=== PATIENT | female | born 1940 | race Caucasian/White ===

== ENCOUNTER → 2016-12-31 | Outpatient (CLI) | payer MEDICARE, OTHER ==
[~2016-12-31] MED LIST: AMOXICILLIN 8751 TAB PO; ASPIRIN 81M81 MG/TA2 PO; ASPIRIN E.C. 8181 MG PO; ATROVENT INHALE14 GM IH; BACTRIM DS 8001 TAB PO; BONE MED; BROVANA15 MCG/2 M IH; CARDIZEM 60MG T60 MG PO; CARDIZEM120 MG PO; CEPHALEXIN500 M1 PO; CIPRO 500MG TA500 MG PO; COREG12.5 MG PO; DOXYCYCLINE 10100 MG PO; DRISTAN 12-HOUR15 ML NS; ELIQUIS 5MG PO; FLONASE NASAL S16 GM NS; FOSAMAX 70MG TA70 MG PO; GENTEAL MILD 1515 M1 OP; LANOXIN 0.120.125 MG PO; LASIX 20MG TABL20 MG PO; LASIX 40MG TABL40 MG PO; LEVAQUIN 750MG750 M1 PO; MACROBID 1100 MG/CAP; MACRODANTIN50 MG/CA1; METRONIDAZOLE500 MG PO; MULTAQ400 MG PO; NAPROSYN500 MG PO; NICODERM C21 MG/PATC TD; NITROSTAT0.4 MG/TAB SL; NORCO 325 MG-51 TAB PO; NORCO 325 MG-7.1 TAB PO; NORVASC 5MG5 MG/TAB PO; PHENERGAN 25 TA25 MG PO; PLAVIX 75MG TAB75 MG PO; PREDNISONE10 MG PO; PREDNISONE20 MG PO; PRILOSEC 20MG20 MG PO; PRINIVIL2.5 MG PO; PRINIVIL5 MG PO; PROAIR HFA0.09 MG/AC; PROAIR HFA0.09 MG/AC IH; RT ADVAIR 228 DISKUS IH; RT SPIRIVA18 MCG IH; TEARS NATURALE15 M1 OP; TIKOSYN0.125 MG PO; TOPROL XL 25MG25 MG PO; ULTRAM 50MG TAB50 MG PO; VENTOLIN0.09 MG IH; XOPENEX HF0.045 MG/A IH; ZOCOR 20MG20 MG PO; [UNRECOGNIZED DRUG - REMARK]; [UNRECOGNIZED DRUG - REMARK]; cholesterol med; htn med
== END ==
LOC: MC.RAD 11:00
DX: Z12.31 Encounter for screening mammogram for malignant neoplasm of breast (principal)

== ENCOUNTER → 2018-01-31 | Outpatient (CLI) | payer MEDICARE, OTHER ==
[~2018-01-31] MED LIST changes: +PRINIVIL20 MG PO; +THEO-24400 MG PO; +ZITHROMAX 250M250 MG PO
== END ==
LOC: COL.CARD 08:00
DX: I10 Essential (primary) hypertension (principal)

== ENCOUNTER → 2018-02-24 | Outpatient (CLI) | payer MEDICARE, OTHER | LOC: MC.RAD 07:40 | DX: Z12.31 Encounter for screening mammogram for malignant neoplasm of breast (principal); Z95.0 Presence of cardiac pacemaker ==

== ENCOUNTER 2018-06-28 15:47 | Observation (INO) | payer MEDICARE ==
[~2018-06-28] VITALS: Ht 154.9 cm; Wt 46.1 kg
[2018-06-28 16:39] LABS: BASO % 0.5 % (0.0-2.0); EOS # 0.2 (0.0-0.7); EOS % 2.5 % (0-4.0); GRAN # 4.3 (1.4-6.5); GRAN % 54.9 % (42.2-75.2); HEMOGLOBIN 11.9 g/dl (12.5-16.0); LYMPH # 2.6 (1.2-3.4); LYMPH % 33.3 % (20.0-51.0); MEAN CELL VOLUME 91 fl (80.0-100.0); MEAN CORPUSCULAR HEMOGLOBIN 32 pg (27.0-31.0); MEAN CORPUSCULAR HGB CONC 35 g/dl (33.0-37.0); MEAN PLATELET VOLUME 11.9 fl (7.4-10.4); MONO # 0.7 (0.1-0.6); MONO % 8.5 % (1.7-9.3); PLATELET COUNT 151 K/mm3 (130-400); RED BLOOD COUNT 3.78 M/mm3 (4.10-5.30); REDCELL DISTRIBUTION WIDTH-CV 11.9 % (11.5-14.5)
[2018-06-28 16:42] LABS: HEMATOCRIT 34.5 % (37.0-47.0)
[2018-06-28 16:51] LABS: ALBUMIN 4.1 gm/dL (3.5-5.0); BILIRUBIN,TOTAL 0.3 mg/dL (0.0-1.0); C-REACTIVE PROTEIN 0.7 mg/dL (0.0-0.9); CALCIUM 9.5 mg/dL (8.4-10.2); CREATININE, serum 1.55 mg/dL (0.52-1.25)
[2018-06-28 17:00] LABS: TROPONIN-I 0.033 ng/mL (0.000-0.034)
[2018-06-28] MEDS ORDERED: HYGROTON 2525 MG/TAB (19:32)
[2018-06-28] MEDS ORDERED: BYSTOLIC10 MG PO (19:36)
[2018-06-28] MEDS ORDERED: UNIPHYL 400MG400 MG PO (20:33)
[2018-06-28 22:24] VITALS: BP 126/91; PULSE 68; TEMP 97.9
[2018-06-29 01:15] VITALS: BP 130/58; PULSE 61; TEMP 98.2
[2018-06-29 04:59] VITALS: BP 131/67; PULSE 64; TEMP 98.1
--- NOTE | 2018-06-29 06:01 | NUR ---
PT APPEARED TO HAVE SLEPT WELL THIS HS. NO C/O PAIN. NOT MUCH URINE OUTPUT NOTED THIS HS. PENDING UA NEEDED, HAT IN TOILET. TOOK PT IN SPUTUM COLLECTION CONTIANER AND INSTRUCTED ON HOW TO USE, IF ABLE TO SPIT UP MUCUS. STATED SHE HASNT BEEN ABLE TO COUGH UP ANYTHING OF YET. RESPATORY VIRUS PANEL SWAB OBTIANED AND SENT TO LAB, PT PUT ON DROPLET PRECATIONS UNTIL RESULTS RETURN. PT HAD A LOWER O2 SAT OF 91 THIS EARLY AM, THROUGHOUT NOC PT REMAINED IN THE UPPER 90'S PRIOR.
[2018-06-29 06:49] LABS: COLLECTION METHOD CLEAN CATCH
[2018-06-29 06:55] LABS: BASO % 0.2 % (0.0-2.0); GRAN # 4.7 (1.4-6.5); GRAN % 78.2 % (42.2-75.2); HEMOGLOBIN 10.5 g/dl (12.5-16.0); LYMPH # 1.1 (1.2-3.4); LYMPH % 18.4 % (20.0-51.0); MEAN CELL VOLUME 90 fl (80.0-100.0); MEAN CORPUSCULAR HEMOGLOBIN 31 pg (27.0-31.0); MEAN CORPUSCULAR HGB CONC 35 g/dl (33.0-37.0); MEAN PLATELET VOLUME 12.2 fl (7.4-10.4); MONO # 0.2 (0.1-0.6); MONO % 2.5 % (1.7-9.3); PLATELET COUNT 147 K/mm3 (130-400); RED BLOOD COUNT 3.37 M/mm3 (4.10-5.30); REDCELL DISTRIBUTION WIDTH-CV 11.9 % (11.5-14.5)
[2018-06-29 06:57] LABS: HEMATOCRIT 30.3 % (37.0-47.0)
[2018-06-29 07:00] LABS: MUCOUS Present /lpf; PH 6 (5-8); SQUAMOUS EPITHELIAL 0-2 /hpf; URINE APPEARANCE Clear; URINE BACTERIA None Seen /hpf; URINE BILIRUBIN Negative (NEGATIVE); URINE BLOOD 1+ (NEGATIVE); URINE COLOR Yellow; URINE GLUCOSE Negative (NEGATIVE); URINE KETONE Negative (NEGATIVE); URINE LEUKOCYTE ESTERASE Negative (NEGATIVE); URINE NITRATE Negative (NEGATIVE); URINE PROTEIN(semi-quant) Negative (NEGATIVE); URINE RBC 0-2 /hpf; URINE UROBILINOGEN Negative (NEGATIVE)
[2018-06-29 07:05] LABS: CALCIUM 8.5 mg/dL (8.4-10.2); CREATININE, serum 1.37 mg/dL (0.52-1.25); POTASSIUM 3.9 mmol/L (3.4-5.0)
[2018-06-29 07:20] VITALS: BP 126/65; PULSE 85; TEMP 98.1
[2018-06-29 11:21] VITALS: BP 122/70; PULSE 73; TEMP 97.7
[2018-06-29] MEDS ORDERED: PREDNISONE10 MG PO (14:13)
--- NOTE | 2018-06-29 14:36 | NUR ---
SW attended clinical rounding and met with patient to discuss dicharge planning. Patient lives in [place] with her daughter who she reports is a TAKER OFF BRAKER MACHINE. She uses o2 at night and obtains it through [facility] [employer] [facility] but does not need it during the day. Patients PCP is Dr Herbert and she obtains her medications through [facility]. Patient feels she can go home safely and doesn't need any home health or other DME.
--- NOTE | 2018-06-29 15:15 | NUR ---
Reviewed all discharge medications and instructions with patient and daughter. Emphasized importance of labwork on Tuesday, holding diuretics until follow up. Reviewed weighing herself daily to check for weight gain, especially while holding diuretics. All questions answered in depth. Patient and daughter verbalize understanding. INT and tele removed. Pt walked out to car.
== END 2018-06-29 15:16 | disposition home or self-care (01) ==
LOC: COL.ER 15:47 → MEDICAL 18:54
PROVIDERS: Emergency Medicine; Nurse Practitioner
DX: J44.1 Chronic obstructive pulmonary disease with (acute) exacerbation (principal); I48.91 Unspecified atrial fibrillation; I10 Essential (primary) hypertension; E78.5 Hyperlipidemia, unspecified; I13.0 Hypertensive heart and chronic kidney disease with heart failure and stage 1 through stage 4 chronic kidney disease, or unspecified chronic kidney disease; I50.20 Unspecified systolic (congestive) heart failure; N17.9 Acute kidney failure, unspecified; I25.10 Atherosclerotic heart disease of native coronary artery without angina pectoris; Z90.710 Acquired absence of both cervix and uterus; Z88.8 Allergy status to other drugs, medicaments and biological substances; Z95.0 Presence of cardiac pacemaker; Z87.891 Personal history of nicotine dependence; Z82.49 Family history of ischemic heart disease and other diseases of the circulatory system; Z82.3 Family history of stroke; Z80.8 Family history of malignant neoplasm of other organs or systems
CPT/HCPCS: 99223-AI; G0378; J7030; J7512

== ENCOUNTER 2019-01-03 18:28 | Inpatient (IN) | payer MEDICARE ==
[~2019-01-03] VITALS: Ht 154.9 cm; Wt 41.5 kg
[~2019-01-03 18:28] MED LIST changes: +BYSTOLIC10 MG PO; +HYGROTON 2525 MG/TAB; +UNIPHYL 400MG400 MG PO
[2019-01-03 18:57] LABS: BASO # 0.1 (0.0-0.2); BASO % 0.4 % (0.0-2.0); EOS # 0.1 (0.0-0.7); EOS % 0.7 % (0-4.0); GRAN # 10.8 (1.4-6.5); GRAN % 78.6 % (42.2-75.2); HEMATOCRIT 41.2 % (37.0-47.0); HEMOGLOBIN 13.9 g/dl (12.5-16.0); LYMPH # 1.7 (1.2-3.4); LYMPH % 12.4 % (20.0-51.0); MEAN CELL VOLUME 92 fl (80.0-100.0); MEAN CORPUSCULAR HEMOGLOBIN 31 pg (27.0-31.0); MEAN CORPUSCULAR HGB CONC 34 g/dl (33.0-37.0); MEAN PLATELET VOLUME 12.6 fl (7.4-10.4); MONO % 7.5 % (1.7-9.3); PLATELET COUNT 142 K/mm3 (130-400); RED BLOOD COUNT 4.49 M/mm3 (4.10-5.30); REDCELL DISTRIBUTION WIDTH-CV 12.9 % (11.5-14.5)
[2019-01-03 19:11] LABS: ALBUMIN 4.2 gm/dL (3.5-5.0); BILIRUBIN,TOTAL 0.9 mg/dL (0.0-1.0); C-REACTIVE PROTEIN 1.6 mg/dL (0.0-0.9); CALCIUM 9.5 mg/dL (8.4-10.2); CREATININE, serum 0.95 (0.52-1.25); POTASSIUM 4.2 mmol/L (3.4-5.0)
[2019-01-03 19:33] LABS: COLLECTION METHOD CLEAN CATCH
[2019-01-03 19:42] LABS: MUCOUS Present /lpf; PH 5 (5-8); SQUAMOUS EPITHELIAL 0-2 /hpf; URINE APPEARANCE Hazy; URINE BACTERIA Rare /hpf; URINE BILIRUBIN Negative (NEGATIVE); URINE BLOOD 2+ (NEGATIVE); URINE COLOR Amber; URINE GLUCOSE Negative (NEGATIVE); URINE KETONE Trace (NEGATIVE); URINE LEUKOCYTE ESTERASE Negative (NEGATIVE); URINE NITRATE Negative (NEGATIVE); URINE PROTEIN(semi-quant) 2+ (NEGATIVE); URINE UROBILINOGEN Negative (NEGATIVE)
[2019-01-03] MEDS ORDERED: CEFTIN500 MG PO (21:25)
[2019-01-03] MEDS ORDERED: ALBUTEROL0.83 MG/ML IH (21:27)
[2019-01-03] MEDS ORDERED: VENTOLIN0.09 MG IH (21:28)
[2019-01-03] MEDS ORDERED: TIKOSYN0.125 MG PO (21:30)
[2019-01-03] MEDS ORDERED: PULMICORT0.25 MG/2 IH (21:30)
[2019-01-03] MEDS ORDERED: ELIQUIS 5MG PO (21:31)
[2019-01-03] MEDS ORDERED: ARMONAIR RESPI55 MCG IH (21:32)
[2019-01-03] MEDS ORDERED: FLONASEALLERGY NS (21:33)
[2019-01-03] MEDS ORDERED: LASIX 20MG TABL20 MG PO (21:34)
[2019-01-03] MEDS ORDERED: CLARITIN 1010 MG/TAB PO (21:35)
[2019-01-03] MEDS ORDERED: TOPROL XL200 MG PO (21:37)
[2019-01-03] MEDS ORDERED: PRIL40 PO (21:38)
[2019-01-03] MEDS ORDERED: SPIRIVA RE2.5 MCG/Ac IH (21:41)
[2019-01-03 22:04] VITALS: BP 199/85; PULSE 68; TEMP 97.9
[2019-01-03 23:31] VITALS: BP 165/99; PULSE 78; TEMP 98.5
[2019-01-04] MEDS ORDERED: THEO-24400 MG PO (00:42)
--- NOTE | 2019-01-04 03:32 | NUR ---
Patient to the floor at 2200 with daughter at bedside. Med rec completed, NS running to left AC. Patient denies pain at time of assessment. Noted to be hypertensive, gave lisinopril and Tikosyn per order and home meds. Rechecked blood pressure and noted to be 170/70. Libby updated and no new orders at this time. Patient resting in bed with call light in reach. Will continue to monitor.
[2019-01-04 03:46] VITALS: BP 170/70; PULSE 63; PULSE 66; TEMP 98.3
[2019-01-04 06:40] LABS: BASO % 0.3 % (0.0-2.0); EOS # 0.1 (0.0-0.7); EOS % 0.9 % (0-4.0); GRAN # 10.6 (1.4-6.5); GRAN % 78.4 % (42.2-75.2); HEMATOCRIT 37.3 % (37.0-47.0); HEMOGLOBIN 12.7 g/dl (12.5-16.0); LYMPH # 1.6 (1.2-3.4); LYMPH % 11.6 % (20.0-51.0); MEAN CELL VOLUME 91 fl (80.0-100.0); MEAN CORPUSCULAR HEMOGLOBIN 31 pg (27.0-31.0); MEAN CORPUSCULAR HGB CONC 34 g/dl (33.0-37.0); MEAN PLATELET VOLUME 12.4 fl (7.4-10.4); MONO # 1.2 (0.1-0.6); MONO % 8.5 % (1.7-9.3); PLATELET COUNT 129 K/mm3 (130-400); RED BLOOD COUNT 4.09 M/mm3 (4.10-5.30); REDCELL DISTRIBUTION WIDTH-CV 12.9 % (11.5-14.5)
[2019-01-04 06:49] LABS: CALCIUM 8.3 mg/dL (8.4-10.2); CREATININE, serum 0.76 (0.52-1.25); POTASSIUM 3.9 mmol/L (3.4-5.0)
--- NOTE | 2019-01-04 08:00 | NUR ---
PATIENT IS DROWSY AND RESTING IN BED WITH FAMILY PRESENT AT THE BEDSIDE. PATIENT AROUSES EASILY TO NAME. PATIENT IS A&OX4. VSS. BOWEL SOUNDS HYPERACTIVE ALL FOUR QUADRANTS. PATIENT HAS HAD SOME NAUSEA, BUT DENIES VOMITING. PATIENT STATES THAT SHE GETS SHORT OF BREATH WITH ACTIVITY. IV FLUIDS INFUSING TO LEFT AC IV VIA PUMP. CALL LIGHT WITHIN REACH. PATIENT DENIES ANY OTHER NEEDS AT THIS TIME.
[2019-01-04 08:32] VITALS: BP 158/69; PULSE 62; TEMP 98.2
[2019-01-04 11:58] VITALS: BP 121/90; PULSE 65; TEMP 98.2
--- NOTE | 2019-01-04 12:01 | NUR ---
PATIENT DENIES ANY COMPLAINTS OF ITCHING DURING OR AFTER FLAGYL INFUSION.
--- NOTE | 2019-01-04 15:56 | NUR ---
SW met with the patient to discuss discharge plan. The patient lives in [place] with her adopted daughter, Carmen. She reports independence with ADLs and does not have any DME. The patient's PCP is Dr. David Herbret and she receives her medications through the mail from [facility]. She reports no difficulties obtaining her meds. The patient does not have advanced directives in EMR, but she states that she does have them completed and at home. She states her daughter, Deloris Carnes, is her DPOA-HC. The patient plans to return home upon discharge. No additional needs at this time.
[2019-01-04 16:29] VITALS: BP 149/80; PULSE 63; TEMP 98.4
--- NOTE | 2019-01-04 19:01 | NUR ---
REPORT GIVEN TO MIRANDA CALABRESE.
[2019-01-04 19:15] VITALS: BP 138/62; PULSE 62; TEMP 98.4
--- NOTE | 2019-01-04 19:18 | NUR ---
Resting in bed. Assessment complete. Lungs clear. Heart sounds normal. Bowels active x4. Pulses strong throughout. No edema noted. IV left AC infusing without complications. Denies pain. Requesting 2100 medications to be given. Will provide to patient. Denies other needs. Call light in reach.
--- NOTE | 2019-01-04 23:44 | NUR ---
Resting in bed. Call light in reach.
[2019-01-05 01:12] VITALS: BP 158/72; PULSE 63; TEMP 98.2
--- NOTE | 2019-01-05 02:50 | NUR ---
Resting in bed. Denies needs. Call light in reach.
[2019-01-05 04:20] VITALS: BP 185/80; PULSE 61; TEMP 98.1
[2019-01-05 04:41] VITALS: BP 179/73
--- NOTE | 2019-01-05 04:46 | NUR ---
Patient blood pressure elevated. No PRN medication to provide for patient. Spoke with NHI Souza. Given morning dose of lisinopril 20mg now. Will retake blood pressure in 1 hour. Patient denies needs. Call light in reach.
[2019-01-05 05:38] VITALS: BP 177/67
--- NOTE | 2019-01-05 05:39 | NUR ---
Patient blood pressure elevated this AM. After morning dose of lisinopril blood pressure now 177/67. Informed Libby, NHI. Added order for PRN hydralazine. Will provide to patient.
--- NOTE | 2019-01-05 06:42 | NUR ---
Report given to MIRANDA Helm
[2019-01-05 07:03] VITALS: BP 158/66; PULSE 55; TEMP 97.4
[2019-01-05 07:34] LABS: BASO % 0.4 % (0.0-2.0); EOS # 0.2 (0.0-0.7); EOS % 3.5 % (0-4.0); GRAN # 3.9 (1.4-6.5); GRAN % 56.8 % (42.2-75.2); HEMOGLOBIN 11.2 g/dl (12.5-16.0); LYMPH # 1.8 (1.2-3.4); LYMPH % 25.8 % (20.0-51.0); MEAN CELL VOLUME 91 fl (80.0-100.0); MEAN CORPUSCULAR HEMOGLOBIN 31 pg (27.0-31.0); MEAN CORPUSCULAR HGB CONC 34 g/dl (33.0-37.0); MEAN PLATELET VOLUME 12.9 fl (7.4-10.4); MONO # 0.9 (0.1-0.6); MONO % 13.4 % (1.7-9.3); PLATELET COUNT 119 K/mm3 (130-400); RED BLOOD COUNT 3.62 M/mm3 (4.10-5.30)
[2019-01-05 07:46] LABS: HEMATOCRIT 33.1 % (37.0-47.0)
[2019-01-05 07:48] LABS: CALCIUM 8.2 mg/dL (8.4-10.2); CREATININE, serum 0.72 (0.52-1.25); POTASSIUM 3.4 mmol/L (3.4-5.0)
--- NOTE | 2019-01-05 08:00 | NUR ---
PATIENT IS DROWSY AND RESTING IN BED WITH FAMILY PRESENT AT THE BEDSIDE. PATIENT AROUSES EASILY TO NAME. PATIENT IS A&OX4. VSS. BOWEL SOUNDS HYPERACTIVE ALL FOUR QUADRANTS. PATIENT DENIES NAUSEA OR VOMITING. PATIENT TOLERATING DIET. IV FLUIDS INFUSING TO LEFT AC IV VIA PUMP. CALL LIGHT WITHIN REACH. PATIENT DENIES ANY OTHER NEEDS AT THIS TIME.
[2019-01-05] MEDS ORDERED: NORVASC 5MG5 MG/TAB PO (10:41)
[2019-01-05] MEDS ORDERED: FLAGYL500 MG PO (10:47)
[2019-01-05] MEDS ORDERED: CIPRO 500MG TA500 MG PO (10:47)
--- NOTE | 2019-01-05 11:41 | NUR ---
Initial visit; Patient thanked Personal Injury Paralegal for looking in on her and offering God's blessings and to keep her in her prayers.
[2019-01-05 12:00] VITALS: BP 158/66; PULSE 55; TEMP 97.4
--- NOTE | 2019-01-05 14:52 | NUR ---
PATIENT'S LEFT AC INT DISCONTINUED PER PENDING DISCHARGE. TIP INTACT. PATIENT TOLERATED WELL. DISCHARGE INSTRUCTIONS REVIEWED WITH PATIENT. ALL QUESTIONS ANSWERED. PATIENT TAKEN TO PERSONAL VEHICLE VIA WHEELCHAIR BY SURGICAL STAFF. PATIENT DISCHARGED.
[2019-01-06] MEDS ORDERED: PHENERGAN 25 TA25 MG PO (03:16)
== END 2019-01-05 14:52 | disposition home or self-care (01) | DRG 392 ==
LOC: COL.ER 18:28 → SURG 20:39
PROVIDERS: Emergency Medicine; Nurse Practitioner; Physician Assistant; ADMIT Internal Medicine
DX: A09 Infectious gastroenteritis and colitis, unspecified (principal); N17.9 Acute kidney failure, unspecified; E44.0 Moderate protein-calorie malnutrition; E86.0 Dehydration; J44.9 Chronic obstructive pulmonary disease, unspecified; I10 Essential (primary) hypertension; E78.5 Hyperlipidemia, unspecified; F17.210 Nicotine dependence, cigarettes, uncomplicated; K76.9 Liver disease, unspecified; I16.0 Hypertensive urgency; I48.0 Paroxysmal atrial fibrillation; I25.10 Atherosclerotic heart disease of native coronary artery without angina pectoris; D69.6 Thrombocytopenia, unspecified; Z90.49 Acquired absence of other specified parts of digestive tract; Z90.710 Acquired absence of both cervix and uterus; Z95.0 Presence of cardiac pacemaker; Z79.01 Long term (current) use of anticoagulants; Z79.51 Long term (current) use of inhaled steroids; Z88.8 Allergy status to other drugs, medicaments and biological substances
CPT/HCPCS: 99222-AI; G0378; J0744; J1170; J1200; J2405; J7030; Q9967

== ENCOUNTER 2019-01-06 00:53 | Emergency (ER) | payer MEDICARE ==
[~2019-01-06 00:53] MED LIST changes: +ALBUTEROL0.83 MG/ML IH; +ARMONAIR RESPI55 MCG IH; +CEFTIN500 MG PO; +CLARITIN 1010 MG/TAB PO; +FLAGYL500 MG PO; +FLONASEALLERGY NS; +PRIL40 PO; +PULMICORT0.25 MG/2 IH; +SPIRIVA RE2.5 MCG/Ac IH; +TOPROL XL200 MG PO
[2019-01-06 00:57] VITALS: TEMP 97.3
[2019-01-06 01:25] LABS: BASO # 0.1 (0.0-0.2); BASO % 0.4 % (0.0-2.0); EOS # 0.2 (0.0-0.7); EOS % 1.9 % (0-4.0); GRAN # 8.7 (1.4-6.5); GRAN % 68.8 % (42.2-75.2); HEMATOCRIT 39.5 % (37.0-47.0); LYMPH # 2.5 (1.2-3.4); LYMPH % 20.1 % (20.0-51.0); MEAN CELL VOLUME 89 fl (80.0-100.0); MEAN CORPUSCULAR HEMOGLOBIN 31 pg (27.0-31.0); MEAN CORPUSCULAR HGB CONC 35 g/dl (33.0-37.0); MEAN PLATELET VOLUME 12.5 fl (7.4-10.4); MONO % 8.2 % (1.7-9.3); PLATELET COUNT 156 K/mm3 (130-400); RED BLOOD COUNT 4.43 M/mm3 (4.10-5.30); REDCELL DISTRIBUTION WIDTH-CV 12.7 % (11.5-14.5)
[2019-01-06 01:37] LABS: HEMOGLOBIN 13.7 g/dl (12.5-16.0)
[2019-01-06 01:47] LABS: ALBUMIN 4.5 gm/dL (3.5-5.0); BILIRUBIN,TOTAL 0.9 mg/dL (0.0-1.0); C-REACTIVE PROTEIN 1.7 mg/dL (0.0-0.9); CALCIUM 9.4 mg/dL (8.4-10.2); CREATININE, serum 0.69 (0.52-1.25); POTASSIUM 3.4 mmol/L (3.4-5.0); TOTAL PROTEIN 7.5 gm/dL (6.4-8.2)
[2019-01-06 01:56] LABS: TROPONIN-I 0.015 ng/mL (0.000-0.035)
[2019-01-06 02:39] LABS: COLLECTION METHOD CLEAN CATCH
[2019-01-06 02:59] LABS: MUCOUS Present /lpf; PH 8 (5-8); SQUAMOUS EPITHELIAL 0-2 /hpf; URINE APPEARANCE Clear; URINE BACTERIA Rare /hpf; URINE BILIRUBIN Negative (NEGATIVE); URINE BLOOD 1+ (NEGATIVE); URINE COLOR Straw; URINE GLUCOSE Negative (NEGATIVE); URINE KETONE Negative (NEGATIVE); URINE LEUKOCYTE ESTERASE Negative (NEGATIVE); URINE NITRATE Negative (NEGATIVE); URINE PROTEIN(semi-quant) Negative (NEGATIVE); URINE UROBILINOGEN Negative (NEGATIVE)
[2019-01-06] MEDS ORDERED: PHENERGAN 25 TA25 MG PO (03:16)
[2019-01-06 03:19] VITALS: BP 181/93; PULSE 69
== END 2019-01-06 03:32 | disposition home or self-care (01) ==
LOC: COL.ER 00:53
PROVIDERS: Emergency Medicine
DX: K52.9 Noninfective gastroenteritis and colitis, unspecified (principal); I48.91 Unspecified atrial fibrillation; J44.1 Chronic obstructive pulmonary disease with (acute) exacerbation; I10 Essential (primary) hypertension; Z95.0 Presence of cardiac pacemaker; Z90.710 Acquired absence of both cervix and uterus; Z90.89 Acquired absence of other organs; F17.210 Nicotine dependence, cigarettes, uncomplicated
CPT/HCPCS: J2405; J7030

== ENCOUNTER → 2019-04-26 | Outpatient (CLI) | payer MEDICARE, OTHER | LOC: MC.RAD 09:12 | DX: Z12.31 Encounter for screening mammogram for malignant neoplasm of breast (principal); Z95.0 Presence of cardiac pacemaker ==

== ENCOUNTER 2020-06-01 06:38 | Emergency (ER) | payer MEDICARE, OTHER ==
[~2020-06-01] VITALS: Ht 154.9 cm; Wt 47.3 kg
[~2020-06-01 06:38] MED LIST changes: +ENTRESTO 24 MG1 EACH PO
[2020-06-01 06:47] VITALS: BP 163/85; TEMP 97.6
[2020-06-01] MEDS ORDERED: ENTRESTO 24 MG1 EACH PO (06:56)
[2020-06-01] MEDS ORDERED: THEO-24400 MG PO (06:57)
[2020-06-01] MEDS ORDERED: NORCO 325 MG-51 TAB PO (08:16)
[2020-06-01 08:23] VITALS: PULSE 61
== END 2020-06-01 08:23 | disposition home or self-care (01) ==
LOC: COL.ER 06:38
DX: S70.01XA Contusion of right hip, initial encounter (principal); S50.01XA Contusion of right elbow, initial encounter; J45.909 Unspecified asthma, uncomplicated; M25.511 Pain in right shoulder; M25.531 Pain in right wrist; I10 Essential (primary) hypertension; E78.5 Hyperlipidemia, unspecified; I48.91 Unspecified atrial fibrillation; F17.200 Nicotine dependence, unspecified, uncomplicated; Z95.0 Presence of cardiac pacemaker; Z90.710 Acquired absence of both cervix and uterus; Z90.89 Acquired absence of other organs; Z88.8 Allergy status to other drugs, medicaments and biological substances; W01.0XXA Fall on same level from slipping, tripping and stumbling without subsequent striking against object, initial encounter

== ENCOUNTER 2020-11-13 11:57 | Day surgery (SDC) | payer MEDICARE, OTHER ==
[~2020-11-13] VITALS: Ht 154.9 cm; Wt 46.3 kg
[~2020-11-13 11:57] MED LIST changes: +ENTRESTO 49 MG1 EACH PO
[2020-11-13] MEDS ORDERED: ELIQUIS 5MG PO (12:28)
[2020-11-13 13:12] VITALS: BP 122/75; PULSE 63; TEMP 98.1
[2020-11-13 13:23] LABS: INR 1.7 (0.8-3.0); PROTHROMBIN TIME 19.1 SECONDS (9.7-12.8)
[2020-11-13 13:57] LABS: THYROID STIMULATING HORMONE 2.85 uIU/mL (0.465-4.680)
[2020-11-13 14:35] VITALS: BP 127/72; PULSE 57
[2020-11-13 14:50] VITALS: BP 133/67; PULSE 52
[2020-11-13 15:05] VITALS: BP 143/82; PULSE 55
[2020-11-13 15:20] VITALS: BP 136/77; PULSE 52
[2020-11-13 15:35] VITALS: BP 134/85; PULSE 53
--- NOTE | 2020-11-13 16:07 | NUR ---
Pt has tolerated PO without difficulty following procedure. DC instructions reviewed, she expresses understanding. She is steady on feet in room and through shaikh to restroom. IV DC'd with catheter intact. Pt assisted out to daughter's car by wheelchair with belongings.
== END 2020-11-13 16:13 | disposition home or self-care (01) ==
LOC: COL.CAR 11:57
PROVIDERS: Internal Medicine Interventional Cardiology
DX: I48.91 Unspecified atrial fibrillation (principal); J44.9 Chronic obstructive pulmonary disease, unspecified; I08.3 Combined rheumatic disorders of mitral, aortic and tricuspid valves; I11.0 Hypertensive heart disease with heart failure; I50.20 Unspecified systolic (congestive) heart failure; I25.119 Atherosclerotic heart disease of native coronary artery with unspecified angina pectoris; K21.9 Gastro-esophageal reflux disease without esophagitis; M54.9 Dorsalgia, unspecified; M79.7 Fibromyalgia; M19.90 Unspecified osteoarthritis, unspecified site; G89.29 Other chronic pain; G47.33 Obstructive sleep apnea (adult) (pediatric); F17.210 Nicotine dependence, cigarettes, uncomplicated; Z95.810 Presence of automatic (implantable) cardiac defibrillator; Z90.710 Acquired absence of both cervix and uterus; Z90.89 Acquired absence of other organs; Z79.01 Long term (current) use of anticoagulants; Z79.899 Other long term (current) drug therapy; Z99.89 Dependence on other enabling machines and devices
CPT/HCPCS: J2704; J7030

== ENCOUNTER 2021-03-19 06:15 | Inpatient (IN) | payer MEDICARE, OTHER ==
[~2021-03-19] VITALS: Ht 154.9 cm; Wt 48.0 kg
[2021-03-27] MEDS ORDERED: FARXIGA10 PO (10:23)
[2021-03-27 10:44] LABS: CALCIUM 9.6 mg/dL (8.4-10.2); CREATININE, serum 0.85 mg/dL (0.57-1.11); MAGNESIUM 1.9 mg/dL (1.6-2.6)
--- NOTE | 2021-03-27 11:00 | NUR ---
Admission assessment completed, alert/oriented, vital signs stable, denies pain, heart regular/ placed on tele and paced rythm, distal pulses are palpable, lungs CTA/ no resp.difficulty, nicotine patch ordered, meds/allergies/pharmacy reviewed with patient, EKG done, notified cardiolgoy of her arrival, Tikosyn orders in place, will continue to monitor
[2021-03-27 12:00] VITALS: BP 120/69; PULSE 84; TEMP 98
[2021-03-27 16:49] VITALS: BP 109/74; PULSE 71; TEMP 97.7
[2021-03-27 20:00] VITALS: BP 137/67; PULSE 72; TEMP 98.5
--- NOTE | 2021-03-27 21:00 | NUR ---
Patient is sitting in bed, alert and oriented x4, VSS, no nausea, pain or vomiting, Tele in place. Assessment completed, meds provided, no further needs at this time. Call light within reach.
[2021-03-28] VITALS (8 sets, daily range): BP systolic 116–173; BP diastolic 56–79; PULSE 63–79; TEMP 97.4–98.4
[2021-03-28 06:56] LABS: CALCIUM 9.7 mg/dL (8.4-10.2); CREATININE, serum 0.77 mg/dL (0.57-1.11); MAGNESIUM 1.9 mg/dL (1.6-2.6); POTASSIUM 3.9 mmol/L (3.5-4.5)
--- NOTE | 2021-03-28 07:05 | NUR ---
Patient has had a calm night, all needs met. Shift report given to daynfabi.
--- NOTE | 2021-03-28 11:58 | NUR ---
Assessment completed, alert/oriented, vital signs stable, denies pain or discofort, heart RRR/ paced on tele, tolerating Tikosyn well so far, Qtc has been WNL, she is independent in her room and denies other needs
--- NOTE | 2021-03-28 20:30 | NUR ---
Patient is in the side of the bed, alert and oriented x4, VSS, no pain, nausea or vomiting. Tele in place. Assessment completed. Meds provided. No further needs at this time, call light within reach.
[2021-03-29 04:09] VITALS: BP 140/83; PULSE 62; TEMP 97.2
--- NOTE | 2021-03-29 07:07 | NUR ---
Patient has had a calm night. Stable with tikosyn. Shift report given to day nurse.
[2021-03-29 09:37] LABS: CREATININE, serum 0.7 mg/dL (0.57-1.11); MAGNESIUM 1.9 mg/dL (1.6-2.6); POTASSIUM 4.1 mmol/L (3.5-4.5)
[2021-03-29] MEDS ORDERED: TIKOSYN0.125 MG PO (10:45)
[2021-03-29 12:54] VITALS: BP 136/80; PULSE 83; TEMP 98.1
[2021-03-29 16:03] VITALS: BP 113/64; PULSE 65; TEMP 98
--- NOTE | 2021-03-29 19:07 | NUR ---
Discharge orders discussed with patient, isntructed to follow with next week, instructed to take Tikosyn as prescribe/ script sent to [facility] for her, last EKG was done at 1800 and Qtc was WNL after her 6th dose, IV and tele removed, she is ambulatory and driving herself home, I escorted her out the door
== END 2021-03-29 19:09 | disposition home or self-care (01) | DRG 309 ==
LOC: MEDICAL 03-27 06:14
PROVIDERS: Nurse Practitioner; ADMIT Internal Medicine Interventional Cardiology
DX: I48.0 Paroxysmal atrial fibrillation (principal); I50.20 Unspecified systolic (congestive) heart failure; J44.9 Chronic obstructive pulmonary disease, unspecified; I25.10 Atherosclerotic heart disease of native coronary artery without angina pectoris; E78.5 Hyperlipidemia, unspecified; Z90.710 Acquired absence of both cervix and uterus; Z95.0 Presence of cardiac pacemaker; F17.210 Nicotine dependence, cigarettes, uncomplicated

== ENCOUNTER 2021-06-20 10:27 | Emergency (ER) | payer MEDICARE, OTHER ==
[~2021-06-20] VITALS: Ht 154.9 cm; Wt 46.8 kg
[~2021-06-20 10:27] MED LIST changes: +FARXIGA10 PO
[2021-06-20 10:48] VITALS: TEMP 97.5
[2021-06-20 11:45] LABS: COLLECTION METHOD CLEAN CATCH
[2021-06-20 11:51] LABS: HEMATOCRIT 40.9 % (37.0-47.0); HEMOGLOBIN 13.6 g/dl (12.5-16.0); MEAN CELL VOLUME 91 fl (80.0-100.0); MEAN CORPUSCULAR HEMOGLOBIN 30 pg (27-31); MEAN CORPUSCULAR HGB CONC 33 g/dl (33.0-37.0); MEAN PLATELET VOLUME 12.5 fl (7.4-10.4); PLATELET COUNT 128 K/mm3 (130-400); RED BLOOD COUNT 4.49 M/mm3 (4.10-5.30); REDCELL DISTRIBUTION WIDTH-CV 12.4 % (11.5-14.5)
[2021-06-20 11:54] LABS: MUCOUS Present (NOT PRESENT); PH 6 (5-8); SQUAMOUS EPITHELIAL 0-2 /hpf (0-10); URINE APPEARANCE Clear (CLEAR/HAZY); URINE BACTERIA None Seen /hpf (NONE SEEN); URINE BILIRUBIN Negative (NEGATIVE); URINE BLOOD 1+ (NEGATIVE); URINE COLOR Yellow (YELLOW); URINE GLUCOSE 3+ (NEGATIVE); URINE KETONE Negative (NEGATIVE); URINE LEUKOCYTE ESTERASE Negative (NEGATIVE); URINE NITRATE Negative (NEGATIVE); URINE PROTEIN(semi-quant) 2+ (NEGATIVE)
[2021-06-20 12:11] LABS: ALBUMIN 3.6 gm/dL (3.4-4.8); BILIRUBIN,TOTAL 0.7 mg/dL (0.2-1.2); CALCIUM 8.9 mg/dL (8.4-10.2); CREATININE, serum 0.77 mg/dL (0.57-1.11); LYMPHOCYTE 9 % (20.0-51.0); NEUTROPHILS 81 % (42.0-75.2); PLATELET ESTIMATE NORMAL (NORMAL); POTASSIUM 3.3 mmol/L (3.5-4.5); TOTAL PROTEIN 6.1 gm/dL (6.2-8.1)
[2021-06-20 12:50] VITALS: BP 110/76; PULSE 66
== END 2021-06-20 12:50 | disposition home or self-care (01) ==
LOC: COL.ER 10:27
PROVIDERS: Physician Assistant
DX: R19.7 Diarrhea, unspecified (principal); J44.9 Chronic obstructive pulmonary disease, unspecified; I48.91 Unspecified atrial fibrillation; F17.210 Nicotine dependence, cigarettes, uncomplicated; Z20.822 Contact with and (suspected) exposure to COVID-19; Z79.01 Long term (current) use of anticoagulants; Z79.899 Other long term (current) drug therapy
CPT/HCPCS: J2405

== ENCOUNTER 2022-04-15 13:35 | Emergency (ER) | payer MEDICARE, OTHER ==
[2022-04-15] VITALS (235 sets, daily range): BP systolic 184; BP diastolic 85; PULSE 66; TEMP 97.5; O2SAT 70–99
[~2022-04-15] VITALS: Ht 154.9 cm; Wt 50.0 kg
[2022-04-15 16:21] LABS: BASO # 0.1 K/mm3 (0.0-0.2); BASO % 0.6 % (0.0-2.0); EOS # 0.1 K/mm3 (0.0-0.7); EOS % 1.6 % (0.0-4.0); GRAN # 5.8 K/mm3 (1.4-6.5); GRAN % 66.5 % (42.2-75.2); HEMATOCRIT 39.8 % (37.0-47.0); HEMOGLOBIN 13.4 g/dl (12.5-16.0); LYMPH % 22.9 % (20.0-51.0); MEAN CELL VOLUME 91 fl (80.0-100.0); MEAN CORPUSCULAR HEMOGLOBIN 31 pg (27-31); MEAN CORPUSCULAR HGB CONC 34 g/dl (33.0-37.0); MEAN PLATELET VOLUME 12.7 fl (7.4-10.4); MONO # 0.7 K/mm3 (0.1-0.6); MONO % 8.2 % (1.7-9.3); PLATELET COUNT 124 K/mm3 (130-400); RED BLOOD COUNT 4.36 M/mm3 (4.10-5.30); REDCELL DISTRIBUTION WIDTH-CV 12.8 % (11.5-14.5)
[2022-04-15 16:38] LABS: BILIRUBIN,TOTAL 0.7 mg/dL (0.2-1.2); C-REACTIVE PROTEIN 0.39 mg/dL (0.00-0.50); CALCIUM 9.2 mg/dL (8.4-10.2); CREATININE, serum 0.85 mg/dL (0.57-1.11); POTASSIUM 3.3 mmol/L (3.5-4.5)
[2022-04-15] MEDS ORDERED: PREDNISONE20 MG PO (18:46)
== END 2022-04-15 19:40 | disposition home or self-care (01) ==
LOC: COL.ER 13:35
PROVIDERS: Emergency Medicine
DX: R68.84 Jaw pain (principal); K13.79 Other lesions of oral mucosa
CPT/HCPCS: J1100; J1885; J7040; Q9967

== ENCOUNTER 2022-07-08 09:00 | Outpatient (RCR) | payer MEDICARE, OTHER | END 2022-07-13 | disposition home or self-care (01) | LOC: WSST | DX: R13.10 Dysphagia, unspecified (principal) ==

== ENCOUNTER 2023-06-10 11:49 | Emergency (ER) | payer MEDICARE, OTHER ==
[~2023-06-10] VITALS: Ht 154.9 cm; Wt 46.4 kg
[2023-06-10 11:51] VITALS: TEMP 98.6
[2023-06-10 12:14] LABS: BASO # 0.1 K/mm3 (0.0-0.2); BASO % 0.4 % (0.0-2.0); EOS # 0.1 K/mm3 (0.0-0.7); EOS % 0.4 % (0.0-4.0); GRAN # 12.9 K/mm3 (1.4-6.5); HEMATOCRIT 43.6 % (37.0-47.0); HEMOGLOBIN 13.9 g/dl (12.5-16.0); LYMPH # 1.4 K/mm3 (1.2-3.4); LYMPH % 8.6 % (20.0-51.0); MEAN CELL VOLUME 96 fl (80.0-100.0); MEAN CORPUSCULAR HEMOGLOBIN 31 pg (27-31); MEAN CORPUSCULAR HGB CONC 32 g/dl (33.0-37.0); MEAN PLATELET VOLUME 11.9 fl (7.4-10.4); MONO # 1.3 K/mm3 (0.1-0.6); MONO % 8.2 % (1.7-9.3); PLATELET COUNT 136 K/mm3 (130-400); RED BLOOD COUNT 4.54 M/mm3 (4.10-5.30); REDCELL DISTRIBUTION WIDTH-CV 13.1 % (11.5-14.5)
[2023-06-10 12:38] LABS: ALANINE AMINOTRANSFERASE 17 U/L (0-55); ALBUMIN 3.8 gm/dL (3.4-4.8); ALKALINE PHOSPHATASE 91 U/L (40-150); ANION GAP 13 mmol/L (7-16); AST,SGOT 26 U/L (5-34); BILIRUBIN,TOTAL 0.9 mg/dL (0.2-1.2); BLOOD UREA NITROGEN 13 mg/dL (10-20); CALCIUM 9.1 mg/dL (8.4-10.2); CARBON DIOXIDE 29 mmol/L (23-31); CHLORIDE 98 mmol/L (98-107); CREATININE, serum 0.84 mg/dL (0.57-1.11); GLUCOSE 90 mg/dL (70-99); POTASSIUM 3.6 mmol/L (3.5-4.5); SODIUM 140 mmol/L (136-145); TOTAL PROTEIN 6.5 gm/dL (6.2-8.1)
[2023-06-10 12:45] LABS: TROPONIN-I < 0.010 ng/mL (0.00-0.033)
[2023-06-10] MEDS ORDERED: PREDNISONE20 MG PO (13:36)
[2023-06-10] MEDS ORDERED: DOXYCYCLINE HY100 MG PO (13:36)
[2023-06-10 14:22] VITALS: BP 115/67; PULSE 60
== END 2023-06-10 14:22 | disposition home or self-care (01) ==
LOC: COL.ER 11:49
PROVIDERS: Emergency Medicine
DX: J44.1 Chronic obstructive pulmonary disease with (acute) exacerbation (principal); Z88.8 Allergy status to other drugs, medicaments and biological substances
CPT/HCPCS: J7512

== ENCOUNTER 2023-06-13 15:45 | Inpatient (IN) | payer MEDICARE, OTHER ==
[~2023-06-13] VITALS: Ht 154.9 cm; Wt 45.3 kg
[2023-06-13] VITALS (91 sets, daily range): BP systolic 152; BP diastolic 86; PULSE 74; TEMP 98.1; O2SAT 80–100
[~2023-06-13 15:45] MED LIST changes: +DOXYCYCLINE HY100 MG PO; -ENTRESTO 49 MG1 EACH PO
[2023-06-13 16:37] LABS: BASO # 0.1 K/mm3 (0.0-0.2); BASO % 0.3 % (0.0-2.0); EOS % 0.2 % (0.0-4.0); GRAN # 16.2 K/mm3 (1.4-6.5); GRAN % 82.5 % (42.2-75.2); HEMATOCRIT 44.6 % (37.0-47.0); HEMOGLOBIN 14.9 g/dl (12.5-16.0); LYMPH # 1.8 K/mm3 (1.2-3.4); LYMPH % 9.2 % (20.0-51.0); MEAN CELL VOLUME 93 fl (80.0-100.0); MEAN CORPUSCULAR HEMOGLOBIN 31 pg (27-31); MEAN CORPUSCULAR HGB CONC 33 g/dl (33.0-37.0); MONO # 1.4 K/mm3 (0.1-0.6); MONO % 7.2 % (1.7-9.3); PLATELET COUNT 141 K/mm3 (130-400); RED BLOOD COUNT 4.79 M/mm3 (4.10-5.30)
[2023-06-13 16:48] LABS: ARTERIAL BLD GAS O2 SATURATION 92.2 % (92-100); ARTERIAL BLOOD GAS BASE EXCESS 4.2 (-2-2); ARTERIAL BLOOD GAS HCO3 26.9 meq/L (22-26); ARTERIAL BLOOD GAS PCO2 34.7 mmHg (35-45); ARTERIAL BLOOD GAS PO2 58.6 mmHg (80-100); ARTERIAL BLOOD GAS pH 7.51 (7.35-7.45)
[2023-06-13 16:49] LABS: ALANINE AMINOTRANSFERASE 17 U/L (0-55); ALBUMIN 3.5 gm/dL (3.4-4.8); ALKALINE PHOSPHATASE 85 U/L (40-150); ANION GAP 17 mmol/L (7-16); AST,SGOT 22 U/L (5-34); BLOOD UREA NITROGEN 26 mg/dL (10-20); CALCIUM 9.3 mg/dL (8.4-10.2); CARBON DIOXIDE 25 mmol/L (23-31); CHLORIDE 100 mmol/L (98-107); CREATININE, serum 0.93 mg/dL (0.57-1.11); GLUCOSE 100 mg/dL (70-99); POTASSIUM 3.4 mmol/L (3.5-4.5); SODIUM 142 mmol/L (136-145); TOTAL PROTEIN 6.7 gm/dL (6.2-8.1)
[2023-06-13 16:56] LABS: TROPONIN-I < 0.010 ng/mL (0.00-0.033)
[2023-06-13] MEDS ORDERED: NITROSTAT0.4 MG/TAB SL (18:56)
[2023-06-13] MEDS ORDERED: TOPROL XL200 MG PO (18:57)
[2023-06-13] MEDS ORDERED: NEURONTIN100 MG/CAP PO (18:57)
[2023-06-13] MEDS ORDERED: PRIL40 PO (18:57)
[2023-06-13] MEDS ORDERED: LASIX 20MG TABL20 MG PO (19:01)
[2023-06-13] MEDS ORDERED: ELIQUIS 5MG PO (19:02)
[2023-06-13] MEDS ORDERED: ZOCOR 20MG20 MG PO (19:02)
[2023-06-13] MEDS ORDERED: NEURONTIN300 MG/CAP PO (19:02)
[2023-06-13] MEDS ORDERED: ENTRESTO 24 MG1 EACH PO (19:03)
[2023-06-13] MEDS ORDERED: APRESOLINE 10MG10 MG PO (19:03)
[2023-06-13] MEDS ORDERED: TIKOSYN0.125 MG PO (19:04)
[2023-06-13] MEDS ORDERED: FARXIGA10 PO (19:05)
[2023-06-13] MEDS ORDERED: ASPIRIN 81M81 MG/TA2 PO (19:10)
--- NOTE | 2023-06-13 21:16 | NUR ---
Received report from ED nurse
--- NOTE | 2023-06-13 21:27 | NUR ---
Patient arrives to ICU room 8 via ED stretcher. Patient transferred to ICU bed via drawsheet. Patient is alert and oriented. Denies any pain or discomofort. Quickly becomes short of breath and dyspneic with activity. Intial vitals within normal limits; she arrives receiving 6L oxygen via OM. Oxygen titrated to 4L by RT, who is at bedside at time of arrival.
--- NOTE | 2023-06-13 23:05 | NUR ---
Patients belongings include top and bottom dentures and a silver-colored ring with a turquoise gemstone. She denies having hearing aids or other personal belongings with her at this time. Reports wearing reading glasses but that she did not bring them with her.
[2023-06-14] VITALS (948 sets, daily range): BP systolic 108–164; BP diastolic 55–85; PULSE 60–81; TEMP 97.6–98.1; O2SAT 67–100
[2023-06-14 06:14] LABS: HEMATOCRIT 40.4 % (37.0-47.0); HEMOGLOBIN 13.5 g/dl (12.5-16.0); MEAN CELL VOLUME 94 fl (80.0-100.0); MEAN CORPUSCULAR HEMOGLOBIN 32 pg (27-31); MEAN CORPUSCULAR HGB CONC 33 g/dl (33.0-37.0); MEAN PLATELET VOLUME 12.7 fl (7.4-10.4); PLATELET COUNT 125 K/mm3 (130-400); RED BLOOD COUNT 4.28 M/mm3 (4.10-5.30); REDCELL DISTRIBUTION WIDTH-CV 13.2 % (11.5-14.5)
[2023-06-14 06:27] LABS: CALCIUM 8.5 mg/dL (8.4-10.2); CREATININE, serum 0.88 mg/dL (0.57-1.11); POTASSIUM 4.7 mmol/L (3.5-4.5)
[2023-06-14 06:43] LABS: BAND 10 % (0-10); LYMPHOCYTE 6 % (20.0-51.0); NEUTROPHILS 81 % (42.0-75.2); OVALOCYTES 1+; PLATELET ESTIMATE NORMAL (NORMAL)
--- NOTE | 2023-06-14 07:47 | NUR ---
RECEIVED REPORT FROM NIGHTSHIFT RNSUDARSHAN. PATIENT LAYING IN BED RESTING WITH EYES CLOSED. BED IN A LOW POSITION. CALL LIGHT WITHIN REACH. LABS, ORDERS, AND MEDICATIONS ALL REVIEWED AND ACKNOWLEDGED.
--- NOTE | 2023-06-14 09:49 | NUR ---
HEAD TO TOE ASSESSMENT COMPLETED. PATIENT ALERT AND ORIENTED. PUPILS EQUAL AND REACTIVE. HEART SOUNDS REGULAR WITH S1 AND S2 NOTED. LUNG SOUNDS DIMINISHED ALL OVER WITH WHEEZES BILATERALLY IN UPPER LOBES. BOWEL SOUNDS ACTIVE X4. PATIENT ABLE TO USE BEDSIDE COMMODE TO VOID. PATIENT HAD SMALL BM THIS AM. PULSES PRESENT AND EQUAL BILATERALLY IN UPPER AND LOWER EXTREMITIES. MEDICATIONS ADMINISTERED PER EMAR. BED IN A LOW POSITION. CALL LIGHT WITHIN REACH.
[2023-06-14] MEDS ORDERED: TEGRETOL 1100 MG/TAB PO (09:51)
[2023-06-14] MEDS ORDERED: NICODERM C21 MG/PATC TD (09:53)
[2023-06-14] MEDS ORDERED: TIKOSYN0.125 MG PEG (09:54)
--- NOTE | 2023-06-14 16:05 | NUR ---
farmworker brooder farm met with patient to discuss discharge planning. Patient lives in [place] with her daughter, Gali, P# [phone]. PCP is Dr. Herbert, pharmacy is [facility]. Patient reports she has a few medications that are costly. Patient has [facility] and spoke with her physician about affordable options. Her physician was able to get one of the medications mailed to her for free. Patient reports she does not have a DPOA-HC but would like to think about completing one while in the hospital. Patient utilizes oxygen while she sleeps at night. Patient reports being indpendent at home with ADLS. Patient would like to return home at time of discharge. SW contacted patient's daughter, Gali, P# [phone]. Gali informed the social media director that this number is actually the patient's number. Gali's number is [phone]. Gali confirmed that patient uses oxygen at night and also has a breathing treatment machine that she utilizes occasionally. Gali believed patient has a DPOA-HC with her sister, Deloris, being the agent but she was going to check if this was in writing. RUBIN expressed if it was in writing, the hospital would like a copy of the form. Gali confirmed the patient lives with her and she has no concerns about her returning home. Discharge Plan: Home
--- NOTE | 2023-06-14 19:23 | NUR ---
REPORT GIVEN TO CLAU, MEDICAL FLOOR RN IN PERSON. CLAU WILL CALL DOWN TO UNIT WHEN READY FOR PATIENT TO TRANSFER UPSTAIRS.
--- NOTE | 2023-06-14 20:20 | NUR ---
PT TRANSFERED FROM ICU TO ROOM 308. PT IS AXOX4 BUT [place]. PT IS ON 3L OXYMASK SATING 98%, PT WEARS 2.5L AT NOC AT BASELINE. PT WEANED DOWN TO 2L. PT ORIENTED TO ROOM AND FLOOR. PT GIVEN CALL LIGHT AND INSTRUCTED TO CALL WITH ALL NEEDS.
[2023-06-15] VITALS (12 sets, daily range): BP systolic 108–172; BP diastolic 64–77; PULSE 63–96; TEMP 96–98.2
--- NOTE | 2023-06-15 07:08 | NUR ---
FINE CRACKLES IN BASES, SPO2 ON 3LPM 92%, LOOSE COUGH, ERICKA RT TX WELL.
[2023-06-15 09:18] LABS: BASO % 0.2 % (0.0-2.0); EOS % 0.1 % (0.0-4.0); GRAN # 11.8 K/mm3 (1.4-6.5); GRAN % 83.4 % (42.2-75.2); HEMATOCRIT 40.3 % (37.0-47.0); HEMOGLOBIN 13.1 g/dl (12.5-16.0); LYMPH # 1.2 K/mm3 (1.2-3.4); LYMPH % 8.6 % (20.0-51.0); MEAN CELL VOLUME 96 fl (80.0-100.0); MEAN CORPUSCULAR HEMOGLOBIN 31 pg (27-31); MEAN CORPUSCULAR HGB CONC 33 g/dl (33.0-37.0); MEAN PLATELET VOLUME 12.4 fl (7.4-10.4); MONO % 7.4 % (1.7-9.3); PLATELET COUNT 127 K/mm3 (130-400); RED BLOOD COUNT 4.19 M/mm3 (4.10-5.30); REDCELL DISTRIBUTION WIDTH-CV 13.4 % (11.5-14.5)
[2023-06-15 09:44] LABS: CALCIUM 9.2 mg/dL (8.4-10.2); CREATININE, serum 0.77 mg/dL (0.57-1.11); POTASSIUM 4.1 mmol/L (3.5-4.5)
--- NOTE | 2023-06-15 10:30 | NUR ---
PATIENT WAS UNABLE TO TAKES HER MORNING MEDICATIONS DUE TO SEVERE PAIN FROM RIGHT SIDED TRIGEMINAL NEURALGIA. PATIENT STATES THE PAIN IS IN HER JAW AND RADIATES TO THE LATERAL PORTION OF HER FACE/HEAD. WHEN TRYING TO TAKE MEDICATIONS, PATIENT WOULD HOLD THE SIDE OF HER FACE, AND THE MEDICATIONS WOULD FALL OUT BECAUSE IT HURT TO HOLD THEM INSIDE HER CHEEK. SHE HAS RECEIVED TWO 1MG DOSES OF MORPHINE AND IV TORADOL 15MG. PATIENT HAS BEEN ABLE TO TAKE SIPS OF WATER WITH A SPOON, AND IS CURRENTLY ON IV FLUIDS. PATIENT WAS SUPPOSED TO HAVE AN APPOINTMENT FOR THE FACIAL NERVE PAIN ON 06/14/23, BUT BECAUSE OF HOSPITAL STAY/ILLNESS APPOINTMENT MISSED. ASSESSMENT COMPLETE. AXOX4. COMMUNICATES USING SHORT WORDS AND WRITING ON PAPER BECAUSE FACIAL PAIN IS SEVERE. VSS. PATIENT IS RESTING IN BED, CALL LIGHT WITHIN REACH, BED ALARM ON.
--- NOTE | 2023-06-15 11:37 | NUR ---
NOTIFIED PROVIDER OF LOW BLOOD SUGAR OF 68. HYPOGLYCEMIA PROTOCOL INITIATED. PATIENT RECEIVED 25ML OF DEXTROSE IV.
--- NOTE | 2023-06-15 14:35 | NUR ---
PATIENT WITH EXTREME RT JAW PAIN, HAS TO HOLD TX MASK. SPO2 ON 5 LPM 90%, LUNG SOUNDS DI T/O. PATIENY SITS UP LL THE TIME.
[2023-06-16] VITALS (13 sets, daily range): BP systolic 153–191; BP diastolic 62–96; PULSE 62–90; TEMP 97.5–98.2
--- NOTE | 2023-06-16 00:29 | NUR ---
patient sitting up in bed, alert and oriented x4. pt denies chest pain and shortness of breath. reports aching nerve pain rated 10/10 when talking in right jaw and radiates up right side of face, reports 0/10 when sleeping. lipitor and eliquis refused by pt at this time. IV in MIGDALIA is patent, site is clean dry and intact. pt has no further needs, questions or concerns. family at bedside. call light within reach. will continue to monitor.
[2023-06-16 07:02] LABS: HEMATOCRIT 38.5 % (37.0-47.0); HEMOGLOBIN 12.7 g/dl (12.5-16.0); MEAN CELL VOLUME 95 fl (80.0-100.0); MEAN CORPUSCULAR HEMOGLOBIN 31 pg (27-31); MEAN CORPUSCULAR HGB CONC 33 g/dl (33.0-37.0); MEAN PLATELET VOLUME 12.5 fl (7.4-10.4); PLATELET COUNT 116 K/mm3 (130-400); RED BLOOD COUNT 4.06 M/mm3 (4.10-5.30); REDCELL DISTRIBUTION WIDTH-CV 13.1 % (11.5-14.5)
[2023-06-16 07:26] LABS: CALCIUM 8.8 mg/dL (8.4-10.2); CREATININE, serum 0.71 mg/dL (0.57-1.11); POTASSIUM 3.4 mmol/L (3.5-4.5)
[2023-06-16 07:48] LABS: BAND 8 % (0-10); LYMPHOCYTE 8 % (20.0-51.0); NEUTROPHILS 73 % (42.0-75.2); PLATELET ESTIMATE DECREASED (NORMAL)
[2023-06-16 09:17] LABS: MAGNESIUM 2.1 mg/dL (1.6-2.6); PHOSPHOROUS 2.3 mg/dL (2.3-4.7)
--- NOTE | 2023-06-16 09:20 | NUR ---
Behavioral Health Specialist, Nurse'S Companion RN, reached out to [facility] for pt transfer request, faxed all applicable documents and clouded images at [phone]. RN reached out to [facility] for pt transfer request, facility currently on diversion, though will push up pt info through administration and reach back out to race and sports book writer. Confirmed Neurosurgery service available at both.
--- NOTE | 2023-06-16 09:30 | NUR ---
PATIENT REFUSED ALL ORAL MEDICATIONS THIS AM. NODDING HER HEAD NO AND GRABBING THE RIGHT SIDE OF HER FACE.
--- NOTE | 2023-06-16 11:23 | NUR ---
PATIENT ASSESSMENT COMPLETE. STILL REMAINS ON 3L NC. IT HAS BEEN DIFFICULT TO MANAGE HER TRIGEMINAL NEURALGIA PAIN DUE TO THE RISK OF RESPIRATORY DEPRESSION. PATIENT HAS HAD TO TWO HYPOGLYEMIC EVENTS AND HAS NEEDED IV DEXTROSE BECAUSE SHE HAS NOT BEEN EATING OR DRINKING MUCH THE LAST 48 HOURS. PROVIDER ORDERED TPN AND PICC LINE. FIRST ATTEMPT AT STARTING A PICC LINE WAS UNSUCCESSFUL BECAUSE THE PATIENT WANTED TO HOLD HER RIGHT HAND ON HER RIGHT CHEEK AND FELT MORE PAIN LAYING FLAT. PROVIDER ORDERED ATIVAN TO HELP RELAX THE PATIENT. PICC LINE TEAM WILL MAKE A SECOND ATTEMPT. AT THIS POINT PROVIDER IS HOPING TO GET A BED AT OR [facility] SO THAT PATIENT CAN ADDRESS THE TRIGEMINAL NEURALGIA, PATIENT IS SBA TO THE BEDSIDE COMMODE AND IS AXOX4. SHE CAN NOD YES OR NO AND WRITES HER THOUGHTS ON PAPER. HOPING TO GET PATIENT A PICC LINE AND TPN STARTED BEFORE PATIENT GETS A BED AT DIFFERENT FACILITY.
--- NOTE | 2023-06-16 23:44 | NUR ---
Patient assessed around 2140. Drowsy, but awakens easily. On oxygen at 3 L/min via NC. PICC to RUE with TPN and Lipids running per orders. In bed with call light within reach. Voices no questions, needs, or concerns at this time.
[2023-06-17] VITALS (8 sets, daily range): BP systolic 159–170; BP diastolic 69–90; PULSE 58–66; TEMP 97.5–98.1
--- NOTE | 2023-06-17 06:06 | NUR ---
Patient continues on TPN per orders. Labs drawn from PICC this morning per protocol. On oxygen at 3 L/min via NC. Daughter at bedside. Patient given PRN Morphine this morning as requested for pain. Voices no further questions, needs, or concerns at this time. In bed with call light within reach.
--- NOTE | 2023-06-17 06:45 | NUR ---
appears to be sleeping, bedside shift report received from MIRANDA Quinonez
[2023-06-17 06:50] LABS: BASO % 0.1 % (0.0-2.0); EOS # 0.1 K/mm3 (0.0-0.7); EOS % 0.6 % (0.0-4.0); GRAN % 71.3 % (42.2-75.2); HEMATOCRIT 35.5 % (37.0-47.0); HEMOGLOBIN 11.8 g/dl (12.5-16.0); LYMPH # 1.2 K/mm3 (1.2-3.4); LYMPH % 13.9 % (20.0-51.0); MEAN CELL VOLUME 94 fl (80.0-100.0); MEAN CORPUSCULAR HEMOGLOBIN 31 pg (27-31); MEAN CORPUSCULAR HGB CONC 33 g/dl (33.0-37.0); MEAN PLATELET VOLUME 12.2 fl (7.4-10.4); MONO # 1.1 K/mm3 (0.1-0.6); MONO % 13.4 % (1.7-9.3); PLATELET COUNT 122 K/mm3 (130-400); RED BLOOD COUNT 3.79 M/mm3 (4.10-5.30); REDCELL DISTRIBUTION WIDTH-CV 12.9 % (11.5-14.5)
[2023-06-17 07:13] LABS: CALCIUM 8.7 mg/dL (8.4-10.2); CREATININE, serum 0.57 mg/dL (0.57-1.11); MAGNESIUM 2.2 mg/dL (1.6-2.6); PHOSPHOROUS 2.3 mg/dL (2.3-4.7); POTASSIUM 4.5 mmol/L (3.5-4.5)
--- NOTE | 2023-06-17 08:45 | NUR ---
was able to take most po meds, will wait and give the remainder later after waiting awhile,
--- NOTE | 2023-06-17 08:45 | NUR ---
HEALTH PROMOTION EDUCATOR in and informed patient she is to be NPO and she verbalizes understanding of this
--- NOTE | 2023-06-17 08:47 | NUR ---
is awake now and resting in bed with daughter at bedside, full assessment completed, see interventions for further info, medicated with ativan 0.25mg slow IV and then will try to eat and take meds, Dr Leyva and care team in to see patient
--- NOTE | 2023-06-17 11:15 | NUR ---
is awake and sitting up in bed, is able to talk more clearly and appears to have less facial pain, was able to take remainder of am meds, also provided her with her nutritional supplement and she will take it slowly, denies needs
--- NOTE | 2023-06-17 12:41 | NUR ---
sitting up on side of bed having lunch, has had a full bowl of soup and tolerated well, Dr Leyva notified, will plan discharge
[2023-06-17] MEDS ORDERED: TEGRETOL 1100 MG/TAB PO (12:43)
[2023-06-17] MEDS ORDERED: ELIQUIS 5MG PO (13:31)
[2023-06-17] MEDS ORDERED: ENTRESTO 49 MG1 EACH PO (13:33)
[2023-06-17] MEDS ORDERED: NEURONTIN300 MG/CAP PO (14:00)
[2023-06-17] MEDS ORDERED: NEURONTIN100 MG/CAP PO (14:00)
[2023-06-17] MEDS ORDERED: MEDROL 4MG DOSPA4 MG PO (14:03)
[2023-06-17] MEDS ORDERED: ATIVAN 0.50.5 MG/TAB PO (14:03)
--- NOTE | 2023-06-17 14:10 | NUR ---
appears to be dozing, awakened and TPN stopped and telemetry discontinued, AIV services notified to discontinue PICC
--- NOTE | 2023-06-17 14:40 | NUR ---
cardiopulmonary in and exercise oximetry completed, will need home O2 for during the day also
[2023-06-17] MEDS ORDERED: OXYGEN NASAL.CANN (14:53)
--- NOTE | 2023-06-17 16:23 | NUR ---
discharge instructions given to patient and her daughter, verbalizes understanding, social media marketer working on obtaining O2 for at home, report given to Karen Winston RN
--- NOTE | 2023-06-17 17:15 | NUR ---
dock worker was notified patient will be discharging home. RUBIN met with patient to review important message from Medicare regarding patient's rights. Patient understood and did not have any questions. Patient signed the form. SW made a copy, placed original in the chart, provided a copy to the patient. RUBIN noted while meeting with patient she seemed to be short of breath. SW mentioned home health services. Patient did not want home health at this time until she is able to get her surgery and not be in as much pain. SW provided the home health list from Medicare.gov and explained to patient and her daughter that if she decides when she returns home she would like home health to contact her primary care physician and they would be able to send a referral to the agency of their choice after a face to face appointment with her doctor. Patient and daughter understood. RUBIN met with patient's nurse and asked if patient needs an exercise oximetry as patient only has a concentrator at home. RUBIN contacted patient's PAVanessa, whom ordered the exercise oximetry. RUBIN was notified patient qualifies for oxygen. RUBIN met with patient and asked if she knew the company she received the concentrator through. Patient was not certain but it was through [facility]. SW researched and there was the [facility] which is currently closed. RUBIN contacted Elise[facility] Malcolm whom were able to look up in her Medicare that she receives her oxygen through [facility]. RUBIN student, Vanessa, called [facility] whom informed her that their office is closing soon and would need to discuss this with their airport operations duty manager. RUBIN called [facility] back immediately as patient is ready for discharge and she is needing oxygen. Osvaldo expressed they would put in the order. RUBIN asked for a fax number which [facility] expressed they did not need physical orders. RUBIN asked for a fax number as she felt more comfortable with sending an order from a doctor to ensure the order went through. RUBIN received the fax number [phone]. RUBIN faxed the order to [facility]. RUBIN was informed the delivery team would be in contact with the social work nurse. RUBIN contacted [facility] again as they had not heard back yet. Osvaldo expressed they were still trying to get in touch with the client delivery manager. RUBIN received a call from the delivery team whom expressed they would be unable to deliver today but would be able to deliver first thing tomorrow morning. RUBIN expressed patient is ready for discharge. The denial management representative spoke with their airport operations duty manager and expressed they are unable to deliver today but can deliver tomorrow. RUBIN met with Dr. Leyva and household assistant, Vandana, regarding the above information. Dr. Leyva expressed if patient and her family were okay with transporting her home they could and she can use her oxygen concentrator at home until the portable one is delivered. RUBIN received a call from the client delivery manager at [facility] whom expressed they could deliver the oxygen tank to the patient's house tomorrow morning. RUBIN confirmed the address including the lot number. [facility] expressed they would deliver it first thing tomorrow and they asked for the order from the hospital. SW re-faxed the order. RUBIN and household assistant met with the family and the family expressed they felt comfortable returning home with patient and getting her set up with her oxygen at home. Family expressed her nose tube got lost at home, household assistant expressed they would send her home with one that she could use at home. RUBIN contacted [facility] again to determine if there was a direct number to provide the family to call if the oxygen is not delivered tomorrow. [facility] expressed there was not a direct line, so the social work nurse could provide the number for after hours, P# [phone] and send it to their after hours number. [facility] asked to confirm the address again, social work nurse provided the address given by the patient, [address] [facility] [address] [facility] [address]. SW also provided the daughter's number in case the patient is unable to hear and answer her phone. [facility] denial management representative then stated that they would deliver the oxygen to the hospital tomorrow morning. RUBIN expressed the client delivery manager expressed she would deliver to the patient's home tomorrow morning as patient is discharging today. [facility] denial management representative stated if that is what the airport operations duty manager stated than that is what would happen. RUBIN asked the denial management representative to put a note that they are discharging home and the portable tank needs to be delivered to the patient's home tomorrow morning. [facility] denial management representative also expressed they did not receive the fax with the orders yet. RUBIN faxed the orders again twice. RUBIN provided the number to the family member and expressed to call them first thing in the morning to ensure they are delivering on time. Patient's family expressed she would be calling them first thing in the morning. RUBIN updated household assistant, patient's nurse and director of the information above. Discharge Plan: Home
--- NOTE | 2023-06-17 17:50 | NUR ---
PT DISCHARGED HOME AT 1550. [facility] WILL BE DELIVERING HOME O2 SUPPLIES IN THE MORNING. PT DOES HAVE A CONCENTRATOR AT HOME BUT WILL BE GETTING A PORTABLE ONE TOMORROW. PT AND FAMILY AWARE AND HAVE THE CONTACT INFORMATION TO FOLLOW UP FOR DELIVERY AND ARE OKAY WITH GOING HOME THIS EVENING. DISCHARGE PAPERWORK AND IV SITE DISCONTINUED BY PREVIOUS NURSE MIRANDA JORDAN. PT ESCORTED OUT VIA WHEELCHAIR BY PCT AND FAMILY. ALL PERSONAL BELONGINGS TAKEN WITH PT.
== END 2023-06-17 17:53 | disposition home or self-care (01) | DRG 871 ==
LOC: COL.ER 15:45 → ICU 20:08 → MEDICAL 06-14 20:23
PROVIDERS: Internal Medicine; Nurse Practitioner Family; Physician Assistant; ADMIT Internal Medicine
PROC: 02HV33Z Insertion of Infusion Device into Superior Vena Cava, Percutaneous Approach (ICD-10-PCS; principal; 2023-06-16)
DX: A41.9 Sepsis, unspecified organism (principal); J18.9 Pneumonia, unspecified organism; J96.21 Acute and chronic respiratory failure with hypoxia; I50.22 Chronic systolic (congestive) heart failure; J90 Pleural effusion, not elsewhere classified; J44.1 Chronic obstructive pulmonary disease with (acute) exacerbation; J44.0 Chronic obstructive pulmonary disease with (acute) lower respiratory infection; I42.2 Other hypertrophic cardiomyopathy; E44.0 Moderate protein-calorie malnutrition; Z68.1 Body mass index [BMI] 19.9 or less, adult; Z66 Do not resuscitate; I25.10 Atherosclerotic heart disease of native coronary artery without angina pectoris; E78.5 Hyperlipidemia, unspecified; I11.0 Hypertensive heart disease with heart failure; I48.0 Paroxysmal atrial fibrillation; E87.6 Hypokalemia; I73.9 Peripheral vascular disease, unspecified; B97.89 Other viral agents as the cause of diseases classified elsewhere; G50.0 Trigeminal neuralgia; E16.2 Hypoglycemia, unspecified; R19.7 Diarrhea, unspecified; I27.20 Pulmonary hypertension, unspecified; D69.6 Thrombocytopenia, unspecified; B97.10 Unspecified enterovirus as the cause of diseases classified elsewhere; B97.4 Respiratory syncytial virus as the cause of diseases classified elsewhere; Z95.0 Presence of cardiac pacemaker; Z79.01 Long term (current) use of anticoagulants; Z90.710 Acquired absence of both cervix and uterus; Z90.49 Acquired absence of other specified parts of digestive tract; Z95.818 Presence of other cardiac implants and grafts; Z99.81 Dependence on supplemental oxygen; Z88.8 Allergy status to other drugs, medicaments and biological substances; Z79.899 Other long term (current) drug therapy; Z87.891 Personal history of nicotine dependence; Z79.82 Long term (current) use of aspirin
CPT/HCPCS: A9270; C1751; J0696; J1100; J1885; J1940; J2060; J2270; J2405; J2543; J2930; J3411; J3480; J7030; Q9967

== ENCOUNTER 2023-09-28 13:51 | Inpatient (IN) | payer MEDICARE, OTHER ==
[~2023-09-28] VITALS: Ht 154.9 cm; Wt 49.6 kg
[~2023-09-28 13:51] MED LIST changes: +APRESOLINE 10MG10 MG PO; +ATIVAN 0.50.5 MG/TAB PO; +ENTRESTO 49 MG1 EACH PO; +MEDROL 4MG DOSPA4 MG PO; +NEURONTIN100 MG/CAP PO; +NEURONTIN300 MG/CAP PO; +OXYGEN NASAL.CANN; +TEGRETOL 1100 MG/TAB PO
[2023-09-28 14:30] LABS: BASO % 0.3 % (0.0-2.0); EOS % 0.1 % (0.0-4.0); GRAN # 10.9 K/mm3 (1.4-6.5); GRAN % 83.2 % (42.2-75.2); HEMATOCRIT 41.9 % (37.0-47.0); HEMOGLOBIN 14.1 g/dl (12.5-16.0); LYMPH # 1.2 K/mm3 (1.2-3.4); LYMPH % 9.1 % (20.0-51.0); MEAN CELL VOLUME 94 fl (80.0-100.0); MEAN CORPUSCULAR HEMOGLOBIN 32 pg (27-31); MEAN CORPUSCULAR HGB CONC 34 g/dl (33.0-37.0); MEAN PLATELET VOLUME 11.7 fl (7.4-10.4); MONO # 0.9 K/mm3 (0.1-0.6); MONO % 6.9 % (1.7-9.3); PLATELET COUNT 164 K/mm3 (130-400); RED BLOOD COUNT 4.48 M/mm3 (4.10-5.30); REDCELL DISTRIBUTION WIDTH-CV 12.4 % (11.5-14.5)
[2023-09-28] MEDS ORDERED: LR 1,000 ML IV ONE (14:30)
[2023-09-28 14:49] LABS: ALBUMIN 3.8 g/dL (3.4-4.8); BILIRUBIN,TOTAL 0.7 mg/dL (0.2-1.2); CALCIUM 9.5 mg/dL (8.4-10.2); CREATININE, serum 0.98 mg/dL (0.57-1.11); POTASSIUM 3.4 mEq/L (3.5-4.5); TOTAL PROTEIN 7.1 g/dl (6.2-8.1)
[2023-09-28 14:55] LABS: TROPONIN-I 0.015 ng/mL (0.00-0.033)
[2023-09-28] MEDS ORDERED: Doxycycline Hyclate 100 MG in NS 150 ML IV ONE (16:00)
[2023-09-28 21:15] LABS: COLLECTION METHOD CLEAN CATCH
[2023-09-28 21:34] LABS: URINE APPEARANCE CLEAR (CLEAR/HAZY); URINE BLOOD TRACE (NEGATIVE); URINE COLOR YELLOW (YELLOW); URINE GLUCOSE NEGATIVE (NEGATIVE); URINE KETONE 4+ (NEGATIVE); URINE NITRATE NEGATIVE (NEGATIVE); URINE PROTEIN(semi-quant) 1+ (NEGATIVE); URINE UROBILINOGEN 0.2 E.U/dL (0.2-1.0)
[2023-09-28 22:24] VITALS: BP 158/87; PULSE 71; TEMP 97.6
--- NOTE | 2023-09-28 23:02 | NUR ---
THE PATIENT ARRIVED FROM THE ED ACCOMPANIED BY ED STAFF. THE PATIENT WAS ALERT AND ORIENTED. THE PATIENT WAS ABLE TO SIT TO STAND AND PIVOT FOR THE TRANSFER. THE PATIENT ALSO HAS HER DAUGHTER WITH HER. NO S/S OF DISTRESS NOTED. CALL LIGHT WITHIN REACH, BED IN LOW POSITION.
[2023-09-28 23:06] LABS: MUCOUS PRESENT (NOT PRESENT); URINE BACTERIA MODERATE /hpf (NONE SEEN); URINE RBC 0-2 /hpf (0-2)
[2023-09-28 23:44] VITALS: BP 160/72; PULSE 60; TEMP 97.7
[2023-09-28 23:55] LABS: CALCIUM 8.9 mg/dL (8.4-10.2); CREATININE, serum 0.83 mg/dL (0.57-1.11)
[2023-09-29] VITALS (9 sets, daily range): BP systolic 126–161; BP diastolic 69–82; PULSE 59–89; TEMP 97–98.2
[2023-09-29] MEDS ORDERED: dexAMETHasone 4 MG/ML VIAL IV SCH (00:17)
[2023-09-29] MEDS ORDERED: D5 1/2 NS 1,000 ML IV SCH (00:30)
[2023-09-29] MEDS ORDERED: Albuterol/Ipratropium 3 MG-0.5 MG/3 ML Neb Soln IH PRN (00:30)
[2023-09-29] MEDS ORDERED: Acetaminophen 325 MG TAB PO PRN (00:30)
[2023-09-29] MEDS ORDERED: LORazepam 2 MG/ML 1 ML VIAL IV PRN (00:30)
[2023-09-29] MEDS ORDERED: Potassium Chloride 100 ML IV SCH ×2 (00:30→06:30)
[2023-09-29] MEDS ORDERED: Albuterol/Ipratropium 3 MG-0.5 MG/3 ML Neb Soln IH SCH (02:00)
[2023-09-29] MEDS ORDERED: Doxycycline Hyclate 100 MG in NS 150 ML IV SCH (06:00)
[2023-09-29 06:46] LABS: HEMATOCRIT 37.9 % (37.0-47.0); MEAN CELL VOLUME 92 fl (80.0-100.0); MEAN CORPUSCULAR HEMOGLOBIN 32 pg (27-31); MEAN CORPUSCULAR HGB CONC 34 g/dl (33.0-37.0); MEAN PLATELET VOLUME 12.4 fl (7.4-10.4); PLATELET COUNT 148 K/mm3 (130-400); RED BLOOD COUNT 4.12 M/mm3 (4.10-5.30); REDCELL DISTRIBUTION WIDTH-CV 12.4 % (11.5-14.5)
[2023-09-29 07:30] LABS: CALCIUM 9.1 mg/dL (8.4-10.2); CREATININE, serum 0.83 mg/dL (0.57-1.11); POTASSIUM 3.2 mEq/L (3.5-4.5)
[2023-09-29 07:36] LABS: LYMPHOCYTE 12 % (20.0-51.0); NEUTROPHILS 88 % (42.0-75.2)
[2023-09-29] MEDS ORDERED: TEGRETOL 1100 MG/TAB PO (07:51)
[2023-09-29] MEDS ORDERED: PREDNISONE10 MG PO (07:53)
[2023-09-29] MEDS ORDERED: XANAX 0.5MG0.5 MG PO (07:54)
[2023-09-29] MEDS ORDERED: Apixaban 5 MG TAB PO SCH (09:00)
[2023-09-29] MEDS ORDERED: carBAMazepine 100 MG TAB PO SCH ×2 (09:00)
[2023-09-29] MEDS ORDERED: Gabapentin 100 MG CAP PO SCH ×2 (09:00)
[2023-09-29] MEDS ORDERED: AlOH3/diphen/Lidoc/MgOH2/Simet Oral Susp 10 ML UD Syringe PO PRN (10:00)
--- NOTE | 2023-09-29 10:26 | NUR ---
Assessment complete. Pt sat up in chair this morning for approximately 1 hour and now resting in bed. Reports right sided jaw/facial pain and mouth pain. Rates 10/10 using faces scale. Roof of mouth red and raw. Order rec'd for magic mouth wash. Pt difficult to understand when she attempts to speak- patient mostly writes things down on paper for communication. Bedside suction set up to assist with removing phlegm. Urine culture needed- patient made aware and supplies set up in [place].
--- NOTE | 2023-09-29 10:37 | NUR ---
Follow-up visit; Patient experiencing nausea and having a difficult morning. Event Specialist Food Demonstrator offered God's blessings and will keep Carmen in her prayers.
[2023-09-29] MEDS ORDERED: D5NS 1,000 ML IV SCH ×2 (10:45→11:00)
[2023-09-29] MEDS ORDERED: Glucagon 1 MG VIAL IM PRN (12:00)
[2023-09-29] MEDS ORDERED: Dextrose 50% Water 25 GM/50 ML SYRINGE IV PRN (12:00)
[2023-09-29] MEDS ORDERED: Dextrose (Glucose) 15 GM (4 x 3.75 GM) Chewable TABLET PACK PO PRN (12:00)
--- NOTE | 2023-09-29 13:04 | NUR ---
craft worker attempted to meet with patient x2, but during this time she was with student nurse attempting to take pills and coughing for a prolonged time. SW called daughter, Gali [phone] who gave the phone to her sister, Shawnee due to driving. Daughter confirmed pt lives with Gali in [place]. Pt sees Dr. Pinon and obtains medications from [facility] with some difficulties. Shawnee reports that pt cannot afford her prescribed Ativan. Daughter states she will work to get financial assistance for this, as she does so for [employer]. They report pt as independent with ADLS and uses oxygen at night through [facility]. Shawnee reports pt has a DPOA-HC listing her and she will bring this in. PT/OT Pending Discharge Plan: home
[2023-09-29] MEDS ORDERED: LORazepam 2 MG/ML 1 ML VIAL IV ONE (13:15)
[2023-09-29 15:05] LABS: PHOSPHOROUS 2.1 mg/dL (2.3-4.7)
[2023-09-29 15:21] LABS: CALCIUM 8.8 mg/dL (8.4-10.2); CREATININE, serum 0.74 mg/dL (0.57-1.11); POTASSIUM 3.4 mEq/L (3.5-4.5)
[2023-09-29] MEDS ORDERED: ATIVAN 1MG T1 MG/TAB PO (15:44)
[2023-09-29] MEDS ORDERED: THIAMINE IV SCH ×2 (16:00)
[2023-09-29] MEDS ORDERED: [UNRECOGNIZED DRUG - OTHER] IV SCH (16:00)
[2023-09-29] MEDS ORDERED: FOLIC ACID IV SCH (16:00)
[2023-09-29] MEDS ORDERED: MULTIVITAMINS FOLIC ACID IV SCH (16:00)
[2023-09-29] MEDS ORDERED: AMINO ACIDS IV SCH (16:00)
[2023-09-29] MEDS ORDERED: [UNRECOGNIZED DRUG - OTHER] IV SCH (16:00)
[2023-09-29] MEDS ORDERED: Potassium Phoshate 10 MM in NS 250 ML IV SCH (16:00)
[2023-09-29] MEDS ORDERED: DEXTROSE IV SCH (16:00)
[2023-09-29] MEDS ORDERED: Insulin Lispro (HumaLOG) SQ SCH (18:00)
--- NOTE | 2023-09-29 19:45 | NUR ---
Patient has been resting in bed since returning to bed this morning. Lab unable to get lab draw this morning. PICC line placed earlier this afternoon by [facility]. Patient was given an additional dose of IV Ativan prior to having PICC placed due to pain in her jaw from the Trigeminal Neuralgia and having to lay in a more flat position- which causes increased pain. Pt slept throughout most of the afternoon. Pt's daughter had concerns regarding cost of Ativan and had requested that a "test" script be sent to [facility] to see what the cost would be. AMY Coburn notified and script sent. Patient's daughter Deloris reported that the cost was actually $0 and she had gotten that prescription cost mixed up with another prescription. Pt able to take pills slowly with sips of water- no coughing noted with po medication. Pt had more phlegm this am then she did this afternoon but uses bedside suction to help excret the phlegm. Magic Mouth was effective with c/o soreness to mouth. Oral swabs provided for moisture. Uses faces scale- reported pain 8/10 during bedside report. Night nurse to administered Ativan. TPN initiated. Urine sample collected and sent to lab. IVF decreased to 50ml/hr per MD order. Tolerated small amount of her full liquid diet.
[2023-09-29] MEDS ORDERED: Simvastatin 20 MG **** subs to Atorvastatin 10 MG PO SCH (21:00)
[2023-09-29] MEDS ORDERED: Atorvastatin 10 MG TAB PO SCH (21:00)
[2023-09-29] MEDS ORDERED: Gabapentin 300 MG CAP PO SCH (21:00)
--- NOTE | 2023-09-29 21:00 | NUR ---
Initial shift assessment done- alert/oriented, cannot speak much due to the pain in jaw/right side of face- does follow directions without problems,, will give Ativan IV as ordered for the pain { this is what has worked for pt in the past} Tele on NSR, IV fluids of D5 1/2 at 50cc/hr, TPN at 31cc/hr, Lipids at 21cc/hr per PICC to MIGDALIA. Up to bathroom with assist, voiding without problems.
[2023-09-30] VITALS (10 sets, daily range): BP systolic 152–175; BP diastolic 82–91; PULSE 60–77; TEMP 97.4–98.3
--- NOTE | 2023-09-30 05:50 | NUR ---
Quiet night- slept very well,no changes.VSS
[2023-09-30 06:59] LABS: MAGNESIUM 1.9 mg/dL (1.6-2.6); PHOSPHOROUS 2.9 mg/dL (2.3-4.7)
[2023-09-30 09:21] LABS: BASO % 0.1 % (0.0-2.0); GRAN # 9.2 K/mm3 (1.4-6.5); GRAN % 84.2 % (42.2-75.2); HEMOGLOBIN 12.2 g/dl (12.5-16.0); LYMPH # 1.1 K/mm3 (1.2-3.4); LYMPH % 9.8 % (20.0-51.0); MEAN CELL VOLUME 92 fl (80.0-100.0); MEAN CORPUSCULAR HEMOGLOBIN 32 pg (27-31); MEAN CORPUSCULAR HGB CONC 34 g/dl (33.0-37.0); MONO # 0.6 K/mm3 (0.1-0.6); MONO % 5.3 % (1.7-9.3); PLATELET COUNT 144 K/mm3 (130-400); RED BLOOD COUNT 3.86 M/mm3 (4.10-5.30); REDCELL DISTRIBUTION WIDTH-CV 12.7 % (11.5-14.5)
[2023-09-30 09:23] LABS: HEMATOCRIT 35.6 % (37.0-47.0)
[2023-09-30 09:58] LABS: CALCIUM 8.5 mg/dL (8.4-10.2); CREATININE, serum 0.74 mg/dL (0.57-1.11)
--- NOTE | 2023-09-30 10:26 | NUR ---
Agree with student nurses assessment of the patient. Patient A&Ox4, still having a hard time communicating verbally. IV CDI, fluids infusing. RT side discomfort. Yonker at the bedside for PRN suctioning. Call light within reach. Bed alarm on
--- NOTE | 2023-09-30 10:35 | NUR ---
Follow-up visit; Patient still having nausea but thanked [employer] for looking in on her again today and keeping her in her prayers. Her daughters thanked [employer] for looking in on Carmen as well.
--- NOTE | 2023-09-30 11:08 | NUR ---
0700 assessment complete. patient has PICC line to right upper arm. d51/2 running @ 50 in purple port. TPN running at 31 in red port. PICC band on. no s/sx. of phlebitis. purple port flushed with 10mL of NS. LLL deminished. swelling in hands bilaterally, primary nurse notified. fall precautions in place. call light within reach. all needs met at this time.
--- NOTE | 2023-09-30 14:33 | NUR ---
casino gaming worker attempted to meet with pt who was fast asleep. SW called Gali, daughter to inform on discharge planning. She met with her sister, Shawnee to discuss on the phone too. RUBIN provided the reccomendation for Home Health services. 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 Daughter's confirmed patient does not have a FWW an will need one at discharge. casino gaming worker attended clinical rounding and was informed pt is on TPN to help get her stronger through the weekend. Discharge Plan: home, FWW need
[2023-09-30] MEDS ORDERED: THIAMINE IV SCH (16:00)
[2023-09-30] MEDS ORDERED: FAMOTIDINE 20 MG IV SCH (16:00)
[2023-09-30] MEDS ORDERED: MULTIVITAMINS FOLIC ACID IV SCH (16:00)
[2023-09-30] MEDS ORDERED: [UNRECOGNIZED DRUG - OTHER] IV SCH (16:00)
--- NOTE | 2023-09-30 23:02 | NUR ---
patient lying in bed, alert and oriented x4. pt denies chest pain and shortness of breath. reports pain in right jaw from trigeminal nerve damage, tylenol given per request. PICC line in MIGDALIA patent, site is clean dry and intact with TPN clinemex running at 52.7 ml/hr and lipids running at 21 ml/hr. small scattered bruising on extremities noted. pt has no further needs, questions or concerns at this time. fall precuations in place, call light within reach. will continue to monitor.
[2023-10-01] VITALS (12 sets, daily range): BP systolic 139–175; BP diastolic 68–98; PULSE 58–65; TEMP 97.5–98.5
[2023-10-01 06:57] LABS: BASO % 0.1 % (0.0-2.0); EOS % 0.1 % (0.0-4.0); GRAN # 7.2 K/mm3 (1.4-6.5); GRAN % 83.8 % (42.2-75.2); HEMOGLOBIN 11.1 g/dl (12.5-16.0); LYMPH % 11.4 % (20.0-51.0); MEAN CELL VOLUME 94 fl (80.0-100.0); MEAN CORPUSCULAR HEMOGLOBIN 31 pg (27-31); MEAN CORPUSCULAR HGB CONC 33 g/dl (33.0-37.0); MEAN PLATELET VOLUME 12.4 fl (7.4-10.4); MONO # 0.3 K/mm3 (0.1-0.6); MONO % 3.6 % (1.7-9.3); PLATELET COUNT 115 K/mm3 (130-400); RED BLOOD COUNT 3.58 M/mm3 (4.10-5.30); REDCELL DISTRIBUTION WIDTH-CV 12.6 % (11.5-14.5)
[2023-10-01 07:04] LABS: HEMATOCRIT 33.8 % (37.0-47.0)
[2023-10-01 07:14] LABS: CALCIUM 8.4 mg/dL (8.4-10.2); CREATININE, serum 0.78 mg/dL (0.57-1.11); PHOSPHOROUS 5.1 mg/dL (2.3-4.7); POTASSIUM 4.5 mEq/L (3.5-4.5)
--- NOTE | 2023-10-01 11:29 | NUR ---
Assessment completed this am. Patient more talkative than she was . Reports that pain with talking is 8/10 and at rest 4/10, stating acceptable pain level 2/10. Ativan IVP and Tylenol po administered. TPN infuses to MIGDALIA PICC line. BMP whole blood glucose was reported to this nurse by lab as >400. Finger stick check was 109. Concerns that labs were drawn when TPN was either running or not shut off for appropriate amount of time. Contacted phlebotomy and requested redraw. TPN shut placed on standby. Denies cough. Denies mouth pain. Family at bedside.
[2023-10-01 12:30] LABS: BASO % 0.2 % (0.0-2.0); GRAN # 7.2 K/mm3 (1.4-6.5); GRAN % 85.6 % (42.2-75.2); HEMOGLOBIN 12.3 g/dl (12.5-16.0); LYMPH # 0.8 K/mm3 (1.2-3.4); LYMPH % 9.6 % (20.0-51.0); MEAN CELL VOLUME 91 fl (80.0-100.0); MEAN CORPUSCULAR HEMOGLOBIN 32 pg (27-31); MEAN CORPUSCULAR HGB CONC 35 g/dl (33.0-37.0); MEAN PLATELET VOLUME 12.6 fl (7.4-10.4); MONO # 0.3 K/mm3 (0.1-0.6); MONO % 3.8 % (1.7-9.3); PLATELET COUNT 124 K/mm3 (130-400); RED BLOOD COUNT 3.91 M/mm3 (4.10-5.30); REDCELL DISTRIBUTION WIDTH-CV 12.5 % (11.5-14.5)
[2023-10-01 12:34] LABS: CALCIUM 8.7 mg/dL (8.4-10.2); CREATININE, serum 0.69 mg/dL (0.57-1.11); POTASSIUM 3.8 mEq/L (3.5-4.5)
[2023-10-01 12:40] LABS: HEMATOCRIT 35.5 % (37.0-47.0)
[2023-10-01] MEDS ORDERED: LORazepam 2 MG/ML 1 ML VIAL IV PRN (14:45)
[2023-10-01] MEDS ORDERED: amLODIPine 5 MG TAB PO SCH (14:45)
[2023-10-01] MEDS ORDERED: MULTIVITAMINS FOLIC ACID IV SCH (16:00)
[2023-10-01] MEDS ORDERED: [UNRECOGNIZED DRUG - OTHER] IV SCH (16:00)
[2023-10-01] MEDS ORDERED: FAMOTIDINE 20 MG IV SCH (16:00)
[2023-10-01] MEDS ORDERED: THIAMINE IV SCH (16:00)
--- NOTE | 2023-10-01 17:53 | NUR ---
PCT assists patient with shower at this time. Pt reported 4/10 pain to right jaw/face. Ativan IV and Tylenol po administered. Pt's speech more understandable as day progressed. Consumed about 30% of each meal today. TPN infuses as ordered. Denies nausea. Blood pressure elevated- order rec'd for amlodipine which has been administered. Pt began having bruising to left eyelid earlier this afternonn which has since moved to under her eye. Family at bedside at this time.
[2023-10-01] MEDS ORDERED: dexAMETHasone 4 MG/ML VIAL IV SCH (21:00)
--- NOTE | 2023-10-01 23:12 | NUR ---
patient sitting on side of bed, alert and oriented x4. denies chest pain and shortness of breath, reports 3/10 pain in right jaw when touched. PICC line in MIGDALIA is patent, site is clean dry and intactwith TPN running at 52 ml/hr and lipids runnings at 21 ml/hr. generalized scattered bruising on extremities, left eye bruising noted. pt has no further needs, questions or concerns at this time. fall precautions in place, call light within reach. will continue to monitor.
[2023-10-02] VITALS (8 sets, daily range): BP systolic 139–172; BP diastolic 76–90; PULSE 59–75; TEMP 97.1–98.3
[2023-10-02 06:37] LABS: BASO % 0.1 % (0.0-2.0); EOS % 0.1 % (0.0-4.0); GRAN % 76.9 % (42.2-75.2); HEMOGLOBIN 11.5 g/dl (12.5-16.0); LYMPH # 1.1 K/mm3 (1.2-3.4); LYMPH % 14.6 % (20.0-51.0); MEAN CELL VOLUME 92 fl (80.0-100.0); MEAN CORPUSCULAR HEMOGLOBIN 31 pg (27-31); MEAN CORPUSCULAR HGB CONC 34 g/dl (33.0-37.0); MEAN PLATELET VOLUME 12.6 fl (7.4-10.4); MONO # 0.5 K/mm3 (0.1-0.6); MONO % 6.9 % (1.7-9.3); PLATELET COUNT 138 K/mm3 (130-400); REDCELL DISTRIBUTION WIDTH-CV 12.5 % (11.5-14.5)
[2023-10-02 06:46] LABS: CALCIUM 8.3 mg/dL (8.4-10.2); CREATININE, serum 0.66 mg/dL (0.57-1.11); MAGNESIUM 1.8 mg/dL (1.6-2.6); PHOSPHOROUS 3.3 mg/dL (2.3-4.7); POTASSIUM 3.6 mEq/L (3.5-4.5)
[2023-10-02 06:47] LABS: HEMATOCRIT 34.1 % (37.0-47.0)
--- NOTE | 2023-10-02 08:00 | NUR ---
Patient sitting up in bed, A&Ox4. VSS. IV CDI, fluids infusing. Reports discomfort in right side of face. TPN infusing. Tolerating PO intake. Call light within reach. Bed alarm on
--- NOTE | 2023-10-02 09:31 | NUR ---
RUBIN visited with patient regarding FWW. Patient's daughter (Deloris) was present. Patient would benefit from walker per PT and inquired with patient preference on medical equipment agency ([email or web address] reviewed) Patient informed SW that she typically uses [facility] for all prescriptions, but also would be open to [facility] for convenience. RUBIN inquired with Dr, if patient's prescription and/or order available to forward over to agency. Not at this time-- RUBIN will leave updates with care management team to check back on status for patient.
[2023-10-02] MEDS ORDERED: LORazepam 0.5 MG TAB PO PRN (09:45)
[2023-10-02] MEDS ORDERED: FAMOTIDINE 20 MG IV SCH (16:00)
[2023-10-02] MEDS ORDERED: MULTIVITAMINS FOLIC ACID IV SCH (16:00)
[2023-10-02] MEDS ORDERED: [UNRECOGNIZED DRUG - OTHER] IV SCH (16:00)
[2023-10-02] MEDS ORDERED: THIAMINE IV SCH (16:00)
--- NOTE | 2023-10-02 21:00 | NUR ---
Initial shift assessment done- states she is not in pain when ativan is given as ordered- next does at 2230 tonight- pt is talking, taking her meds so much better than a couple nights ago- VSS. tele on-paced 64/min. TPN at 52 cc/hr, Lipids at 21cc/hr,, o2 at 2.5L/NC.
[2023-10-03] VITALS (12 sets, daily range): BP systolic 108–157; BP diastolic 59–86; PULSE 60–78; TEMP 97.8–98.3
--- NOTE | 2023-10-03 04:49 | NUR ---
Sleeping well tonight, Up to bathroom with assist with walker,, did get an Ativan po for face /mouth pain about 0045.Continues on TPN at 52cc/hr to [facility].
[2023-10-03 06:29] LABS: HEMOGLOBIN 11.8 g/dl (12.5-16.0); MEAN CELL VOLUME 91 fl (80.0-100.0); MEAN CORPUSCULAR HEMOGLOBIN 31 pg (27-31); MEAN CORPUSCULAR HGB CONC 34 g/dl (33.0-37.0); MEAN PLATELET VOLUME 12.7 fl (7.4-10.4); PLATELET COUNT 139 K/mm3 (130-400); RED BLOOD COUNT 3.79 M/mm3 (4.10-5.30); REDCELL DISTRIBUTION WIDTH-CV 12.7 % (11.5-14.5)
[2023-10-03 06:35] LABS: HEMATOCRIT 34.6 % (37.0-47.0)
[2023-10-03 06:49] LABS: MAGNESIUM 1.7 mg/dL (1.6-2.6); PHOSPHOROUS 3.8 mg/dL (2.3-4.7)
[2023-10-03 07:13] LABS: NEUTROPHILS 74 % (42.0-75.2)
[2023-10-03 07:14] LABS: PLATELET ESTIMATE NORMAL (NORMAL)
[2023-10-03 07:15] LABS: LYMPHOCYTE 21 % (20.0-51.0)
--- NOTE | 2023-10-03 07:23 | NUR ---
Patient sitting up on the edge of the bed. A&Ox4. VSS 2.5 L NC O2. IV CDI, fluids infusing. Denies pain and discomfort. Call light within reach. Bed alarm on
[2023-10-03 08:01] LABS: CALCIUM 8.1 mg/dL (8.4-10.2); CREATININE, serum 0.65 mg/dL (0.57-1.11); POTASSIUM 3.8 mEq/L (3.5-4.5)
[2023-10-03] MEDS ORDERED: amLODIPine 5 MG TAB PO ONE (09:00)
[2023-10-03] MEDS ORDERED: amLODIPine 5 MG TAB PO SCH (09:00)
[2023-10-03] MEDS ORDERED: [UNRECOGNIZED DRUG - OTHER] IV SCH (16:00)
[2023-10-03] MEDS ORDERED: FAMOTIDINE 20 MG IV SCH (16:00)
[2023-10-03] MEDS ORDERED: THIAMINE IV SCH (16:00)
[2023-10-03] MEDS ORDERED: MULTIVITAMINS FOLIC ACID IV SCH (16:00)
--- NOTE | 2023-10-03 20:30 | NUR ---
Initial shift assessment done- very pleasant, alert/oriented x4 , talking so much better, taking pills so much better-- states left side of face is feeling somewhat better with the Ativan that we are giving on a prn basis. Tele on- paced 60/min,, o2 at 2.5L/nc at HS, TPN at 52cc/hr, Lipids at 21cc/hr per PICC to MIGDALIA.
[2023-10-03] MEDS ORDERED: dexAMETHasone 4 MG/ML VIAL IV SCH (21:00)
[2023-10-04] VITALS (12 sets, daily range): BP systolic 97–149; BP diastolic 57–73; PULSE 57–66; TEMP 97.7–98.6
--- NOTE | 2023-10-04 04:50 | NUR ---
Quiet night- did get some sleep, no requests, up to bathroom a couple times with assist. VSS Continues with TPN per PICC at 52cc/hr.
[2023-10-04 07:55] LABS: HEMOGLOBIN 12.1 g/dl (12.5-16.0); MEAN CELL VOLUME 93 fl (80.0-100.0); MEAN CORPUSCULAR HEMOGLOBIN 31 pg (27-31); MEAN CORPUSCULAR HGB CONC 34 g/dl (33.0-37.0); MEAN PLATELET VOLUME 12.7 fl (7.4-10.4); PLATELET COUNT 154 K/mm3 (130-400); RED BLOOD COUNT 3.85 M/mm3 (4.10-5.30); REDCELL DISTRIBUTION WIDTH-CV 12.8 % (11.5-14.5)
[2023-10-04 07:58] LABS: HEMATOCRIT 35.9 % (37.0-47.0)
[2023-10-04 08:08] LABS: CALCIUM 8.5 mg/dL (8.4-10.2); CREATININE, serum 0.66 mg/dL (0.57-1.11)
[2023-10-04 08:13] LABS: BAND 1 % (0-10); LYMPHOCYTE 16 % (20.0-51.0); METAMYELOCYTE 1 % (0-0); NEUTROPHILS 74 % (42.0-75.2); PLATELET ESTIMATE NORMAL (NORMAL)
[2023-10-04] MEDS ORDERED: amLODIPine 5 MG TAB PO SCH (09:00)
--- NOTE | 2023-10-04 09:45 | NUR ---
PT LAYING IN BED UPON ENTERING. ASSESSMENT DONE, MEDS GIVEN PER ORDER. RIGHT UPPER PICC IN PLACE, PURPLE AND RED PORTS FLUSH WITH BLOOD RETURN. TPN AT 52 MLS/HR IN PURPLE PORT. PT DENIES PAIN. NIGHT RN REPORTS PRN ATIVAN HELPED WITH TRIGEMINAL NEURALGIA PAIN. PT DENIES ISSUES EATING AND SWALLOWED MEDS WITHOUT DIFFICULTY. LEFT EYE ERYTHEMA NOTED. PT DENIES NEEDS. BED IN LOWEST POSITION, CALL LIGHT IN REACH, BED ALARM ON.
--- NOTE | 2023-10-04 11:20 | NUR ---
TRIPE COOKER SPOKE TO HOSPITALIST AND NOTIFIED THIS NURSE THAT DUE TO PT HAVING INCREASED CALORIE INTAKE TPN CAN BE STOPPED AFTER CURRENT BAG IS COMPLETE.
--- NOTE | 2023-10-04 13:59 | NUR ---
PT LAYING IN BED UPON ENTERING, TPN RUNNING PER ORDER IN RIGHT UPPER ARM PICC. TRAY AT BEDSIDE AND PT ASKED IF SHE WOULD LIKE TO EAT AND STATES NOT RIGHT NOW. THIS NURSE NOTIFIED PT TO CALL WHEN READY TO EAT SO WE CAN HELP SET UP MEAL, PT VERBALIZED UNDERSTANDING. BED IN LOWEST POSITION, CALL LIGHT IN REACH, BED ALARM ON
--- NOTE | 2023-10-04 15:21 | NUR ---
Substance Abuse Clinician met with patient to review discharge plan. Patient is hopeful to return home tomorrow. Patient declined a need for home health. Patient is agreeable to have FWW ordered, but is unsure if she will follow through with using it. RUBIN Helm sent order to [facility].
--- NOTE | 2023-10-04 16:45 | NUR ---
TPN COMPLETE AND DR BUSTAMANTE CALLED TO VERIFY THAT ITS OKAY TO DISCONTINUE TPN. HOSPITALIST STATES THAT ITS THE LAST BAG ORDERED FROM DIETARY AND OKAY TO STOP. THIS NURSE ASKED IF Q6 ACCUCHECKS WERE STILL NEEDED AND WAS TOLD TO CHECK AT 2100 AND CHANGE TO Q12 ACCUCHECKS
--- NOTE | 2023-10-04 18:10 | NUR ---
PCT TOLD THIS NURSE THAT PTS BLOOD SUGAR 77. PT HAD A LATE LUNCH AND REFUSED DINNER. THIS NURSE AT BEDSIDE AND EDUCATED HER ON THIS AND THAT WITH THE TPN BEING OFF SHE HAS TO ATTEMPT TO REPLACE THOSE NUTRIENTS ORALLY. PT STATES "I CAN ONLY EAT SO MUCH". DINNER ORDERED. PT GIVEN AN APPLE JUICE AND ENCOURAGE TO DRINK HER ENSURE. PT AMBULATED TO BATHROOM WITH THIS RN, GAIT STEADY WITH HER HOLDING THE WALL. PT BACK TO BED. BED IN LOWEST POSITION, CALL LIGHT IN REACH, BED ALARM ON
--- NOTE | 2023-10-04 19:00 | NUR ---
RIGHT UPPER ARM PICC CAPS CHANGED. PURPLE AND RED PORTS GIVE BLOOD AND FLUSH WELL. REPORT GIVEN TO MIRANDA SCOTT
--- NOTE | 2023-10-04 22:20 | NUR ---
patient lying in bed, alert and oriented x4. denies chest pain and shortness of breath. reports pain rated 9/10 in right jaw, ativan given per request. PICC in MIGDALIA is patent, site is clean dry and intact. bruising to left eye and extremities, RH nonpitting edema noted. pt has no further needs, questions, or concerns at this time. fall precautions in place, ambulated to bathroom with standby assist using room and RN to hold onto, unsteady gait. call light within reach. will continue to monitor.
[2023-10-05 00:05] VITALS: BP_SYST 97
[2023-10-05 03:45] VITALS: BP 117/70; PULSE 66; TEMP 97.4
[2023-10-05 03:49] VITALS: BP_SYST 117
[2023-10-05 06:51] LABS: BASO % 0.5 % (0.0-2.0); EOS # 0.2 K/mm3 (0.0-0.7); EOS % 3.7 % (0.0-4.0); GRAN # 3.6 K/mm3 (1.4-6.5); GRAN % 54.6 % (42.2-75.2); HEMOGLOBIN 11.5 g/dl (12.5-16.0); LYMPH # 1.5 K/mm3 (1.2-3.4); LYMPH % 22.7 % (20.0-51.0); MEAN CELL VOLUME 95 fl (80.0-100.0); MEAN CORPUSCULAR HEMOGLOBIN 31 pg (27-31); MEAN CORPUSCULAR HGB CONC 33 g/dl (33.0-37.0); MONO # 1.1 K/mm3 (0.1-0.6); MONO % 17.3 % (1.7-9.3); PLATELET COUNT 123 K/mm3 (130-400); RED BLOOD COUNT 3.67 M/mm3 (4.10-5.30)
[2023-10-05 07:07] LABS: ALBUMIN 2.4 g/dL (3.4-4.8); BILIRUBIN,TOTAL 0.3 mg/dL (0.2-1.2); CALCIUM 8.2 mg/dL (8.4-10.2); CREATININE, serum 0.67 mg/dL (0.57-1.11); MAGNESIUM 1.6 mg/dL (1.6-2.6); POTASSIUM 4.3 mEq/L (3.5-4.5); TOTAL PROTEIN 4.7 g/dl (6.2-8.1)
[2023-10-05 07:56] VITALS: BP 128/76; PULSE 71; TEMP 98
--- NOTE | 2023-10-05 08:01 | NUR ---
Patient sitting up in bed, A&Ox4. VSS. IV CDI. Denies pain and discomfort. WBG 68, instructed the patient to take in PO and will recheck. Patient verbalized an understanding. Call light within reach
[2023-10-05] MEDS ORDERED: ATIVAN 0.50.5 MG/TAB PO (08:45)
[2023-10-05] MEDS ORDERED: NORVASC 10MG10 MG PO (08:48)
[2023-10-05] MEDS ORDERED: dexAMETHasone 4 MG/ML VIAL IV SCH (09:00)
--- NOTE | 2023-10-05 11:18 | NUR ---
Discharge paperwork reviewed with the patient and family at the bedside. Patient verbalized an understanding to follow doctors orders. Family set up outpt f/u appointment with ADDIE yan. PICC removed by MIRANDA Rosa. Dressing CDI. Family getting the patient dressed. Call light within reach
--- NOTE | 2023-10-05 11:45 | NUR ---
Patient taken by wheelchair to awaiting vehicle with personal belongings and discharge paperwork
--- NOTE | 2023-10-05 13:32 | NUR ---
Drapery Worker attended clinical rounds with the team and patient is ready for discharge today. SW met with patient and her daughter at bedside to review discharge plan. SW also reviewed IM form with patient who verbalized understanding and provided signature. SW placed form in chart and provided copy to patient. SW contacted [facility] to determine delivery time, however patient left before FWW could be delivered. SW contacted [facility] and confirmed they would deliver the FWW to the home. Discharge Plan; Home
== END 2023-10-05 11:45 | disposition home or self-care (01) | DRG 189 ==
LOC: COL.ER 13:51 → MEDICAL 20:48
PROVIDERS: Emergency Medicine; Physician Assistant; ADMIT Hospitalist
PROC: 02HV33Z Insertion of Infusion Device into Superior Vena Cava, Percutaneous Approach (ICD-10-PCS; principal; 2023-09-29)
DX: J96.21 Acute and chronic respiratory failure with hypoxia (principal); J44.1 Chronic obstructive pulmonary disease with (acute) exacerbation; I42.2 Other hypertrophic cardiomyopathy; I50.22 Chronic systolic (congestive) heart failure; E87.0 Hyperosmolality and hypernatremia; E44.0 Moderate protein-calorie malnutrition; Z68.1 Body mass index [BMI] 19.9 or less, adult; I25.10 Atherosclerotic heart disease of native coronary artery without angina pectoris; G50.0 Trigeminal neuralgia; E86.0 Dehydration; D72.829 Elevated white blood cell count, unspecified; E87.6 Hypokalemia; I11.0 Hypertensive heart disease with heart failure; I73.9 Peripheral vascular disease, unspecified; E16.2 Hypoglycemia, unspecified; I48.0 Paroxysmal atrial fibrillation; Z90.710 Acquired absence of both cervix and uterus; Z90.49 Acquired absence of other specified parts of digestive tract; Z95.818 Presence of other cardiac implants and grafts; Z95.0 Presence of cardiac pacemaker; Z99.81 Dependence on supplemental oxygen; Z88.8 Allergy status to other drugs, medicaments and biological substances; Z87.891 Personal history of nicotine dependence
CPT/HCPCS: A4217; C1751; J1100; J1650; J2060; J3411; J3480; J7042; J7050; J7120